=== PATIENT | female | born 1965 | race African-American/Black ===

== ENCOUNTER → 2016-09-10 | Outpatient (CLI) | payer OTHER, MEDICAID ==
[2016-09-01 13:36] VITALS: BP 121/69
== END ==
LOC: LAB 09:42
PROVIDERS: ATTEND Orthopaedic Surgery
DX: Z79.01 Long term (current) use of anticoagulants (principal)
CPT/HCPCS: 36415; 85610

== ENCOUNTER → 2016-09-12 | Outpatient (CLI) | payer OTHER, MEDICAID ==
[2016-09-01 13:36] VITALS: BP 121/69
== END ==
LOC: LAB 07:12
PROVIDERS: ATTEND Orthopaedic Surgery
DX: M25.561 Pain in right knee (principal); R79.1 Abnormal coagulation profile
CPT/HCPCS: 36415; 85610

== ENCOUNTER 2016-09-17 18:28 | Emergency (ER) | payer OTHER, MEDICAID ==
[2016-09-17 18:35] VITALS: BP 162/97; BMI 32.8
--- NOTE | 2016-09-17 18:51 | DR.GENAD ---
HPI - PCP Primary Care Physician: desirae - HPI Comment HPI Comment: on coumadin, not anticouagulated when check. dosage increase. took pain med before coming. no drainage. - Complaint/Symptoms Chief Complaint Doctors Comments: post knee surgery 2 weeks ago. increasing calf swelling and pain. no fever. slight erythema around knee. Chief Complaint:: pt states" i had a bruise on the back of my rt leg its gone and i think i got a blood clot". pt had knee replacement on [id number] - Nurses notes reviewed Nurses Notes Review: Yes - Source History Provided: Patient - Mode of Arrival Mode of Arrival: Wheelchair - Timing Onset of Chief Complaint: 09/17/16 Came on: Suddenly - Duration Duration: Constant Duration: Days - Severity Severity: Moderate PMH - PMH Past Medical History: Yes Past Medical History: Arthritis, Diabetes, Hypertension Past Surgical History: Yes Surgical History: Cholecystectomy, Hysterectomy, Joint Replacement, Ortho Surgery Past Surgical History Comment: rt knee [id number] - Family History History of Family Medical Conditions: Yes Family Medical History: Diabetes Mellitus, [place], Coronary Artery Disease, Heart Failure, Sudden Cardiac , Hypertension - Social History Does any household member use tobacco: No Alcohol Use: None Do you use any recreational Drugs:: No Lives With: Family Lives Where: Home - infectious screening In the last 2 months have you had wt loss of >10#?: NO Have you had fever, night sweats or hemotysis?: No Have you traveled outside the country in the last 6 months?: No Isolation: Standard ROS - Review of Systems Constitutional: Weakness, Fatigue. negative: Chills, Fever Eyes: No Symptoms Reported ENTM: No Symptoms Reported Respiratoy: No Symptoms Reported Cardiovascular: No Symptoms Reported Gastrointestinal/Abdominal: No Symptoms Reported Genitourinary: No Symptoms Reported Neurological: No Symptoms Reported Musculoskeletal: Right, Leg, Knee Integumentary: Change in Color, Bruises Hematologic/Lymphatic: Easy Bleeding, Easy Bruising Endocrine: No Symptoms Reported All Other Systems: Reviewed and Negative PE - Vital Signs Vitals: Temperature 99.2 F Pulse Rate 103 Respiratory Rate 18 Blood Pressure [Right Arm] 157/86 Blood Pressure [Left Arm] 161/82 Blood Pressure 162/97 O2 Sat by Pulse Oximetry 100 - General Limitations: No Limitations General Appearance: Alert - Head Head Exam: Normal Inspection - Eyes Eye exam: Normal Appearance - ENT ENT Exam: Normal External Ear Exam External Ear Exam: Normal External Inspection TM/Canal Exam: Bilateral Normal Nose Exam: Normal Nose Exam Mouth Exam: Normal Inspection Throat Exam: Normal Inspection - Neck Neck Exam: Trachea Midline - Chest Chest Inspection: Symmetric Chest Wall Rise - Respiratory Respiratory Exam: Normal Lung Sounds Bilat Respiratory Exam: Bilateral Clear to Auscultation - Cardiovascular Cardiovascular Exam: Regular Rate, Normal Rhythm, Normal Heart Sounds - Abdominal Exam Abdominal Exam: Normal Bowel Sounds, Soft. negative: Tenderness - Extremities Extremities Exam: Tenderness (rt knee and calf tender.). negative: Full ROM ( rt knee decrease rom.) - Back Back Exam: Paraspinal Tenderness - Neurologic Neurological Exam: Alert, Oriented X3 - Psychiatric Psychiatric Exam: Anxious - Skin Skin Exam: Normal Color [facility] - Additional Information Additional Information Obtained From: Family - Differential Diagnosis Differential Diagnosis: dvt, cewllulitid, right knee pain, right calf pain Course - Treatment Treatment: see orders - Education/Counseling Education/Counseling: Patient, Family, Education Educated On: Treatment, Diagnosis, Needs for Follow Up ROR - Labs Reviewed Laboratory Results Reviewed?: Yes Result Diagrams: 09/17/16 19:20 09/17/16 19:20 Laboratory: WBC 9.4 X10^3/uL (3.6-10.0) 09/17/16 19:20 RBC 3.84 X10^6/uL (3.5-5.4) 09/17/16 19:20 Hgb 11.3 g/dL (12.0-16.0) L 09/17/16 19: Hct 33.9 % (36.0-47.0) L 09/17/16 19:20 MCV 88.3 fL (80.0-100.0) 09/17/16 19:20 MCH 29.5 pg (27.0-34.0) 09/17/16 19:20 MCHC 33.4 g/dL (33.0-35.0) 09/17/16 19:20 RDW 13.3 % (11.6-16.5) 09/17/16 19:20 Plt Count 687 X10^3/uL (150.0-450.0) H 09/17/16 19:20 Plt Count Comment Increased (ADEQUATE) A 09/17/16 19:20 MPV 6.0 fL (7.4-11.0) L 09/17/16 19:20 Neut % 52.2 % (42.0-75.0) 09/17/16 19:20 Lymph % 35.5 % (21.0-51.0) 09/17/16 19:20 [place] % 8.0 % (0.0-13.0) 09/17/16 19:20 Eos % 3.8 % (0.9-2.9) H 09/17/16 19:20 Baso % 0.5 % (0.2-1.0) 09/17/16 19:20 Neut # 4.9 x10^3/uL (2.2-4.8) H 09/17/16 19:20 Lymph # 3.3 X10^3/uL (1.3-2.9) H 09/17/16 19:20 [place] # 0.7 x10^3/uL (0.3-0.8) 09/17/16 19:20 Eos # 0.4 x10^3/uL (0.0-0.2) H 09/17/16 19:20 Baso # 0.0 X10^3/uL (0.0-0.1) 09/17/16 19:20 Absolute Nucleated RBC 0.0 /100WBC 09/17/16 19:20 Plt Morphology Comment Normal (NORMAL) 09/17/16 19:20 RBC Morphology Abnormal (NORMAL) A 09/17/16 19:20 Hypochromasia Slight A 09/17/16 19:20 Poikilocytosis Slight A 09/17/16 19:20 D-Dimer 2860 ng/mL (0-400) H* 09/17/16 19:20 Sodium 142 mmol/L (136-145) 09/17/16 19:20 Corrected Sodium 143 mmol/L (136-145) 09/17/16 19:20 Potassium 3.3 mmol/L (3.5-5.1) L 09/17/16 19:20 Chloride 103 mmol/L (98-107) 09/17/16 19:20 Carbon Dioxide 30.0 mmol/L (21-32) 09/17/16 19:20 BUN 20 mg/dL (7-18) H 09/17/16 19:20 Creatinine 1.16 mg/dL (0.55-1.02) H 09/17/16 19:20 Est GFR (MDRD) Af Amer > 60 (>60) 09/17/16 19:20 Est GFR (MDRD) Non-Af 52 (>60) L 09/17/16 19:20 Glucose 160 mg/dL (65-99) H 09/17/16 19:20 Calcium 9.0 mg/dL (8.5-10.1) 09/17/16 19:20 Corrected Calcium TNP 09/17/16 19:20 Total Bilirubin 0.50 mg/dL (0.2-1.0) 09/17/16 19:20 AST 45 Units/L (15-37) H 09/17/16 19:20 ALT 51 Units/L (12-78) 09/17/16 19:20 Alkaline Phosphatase 61 Units/L (46-116) 09/17/16 19:20 Total Protein 7.9 g/dL (6.4-8.2) 09/17/16 19:20 Albumin 3.4 g/dL (3.4-5.0) 09/17/16 19:20 Globulin 4.5 g/dL (2.5-4.5) 09/17/16 19:20 Albumin/Globulin Ratio 0.8 Ratio (1.1-2.1) L 09/17/16 19:20 - XRAY XRAY Interpreted by: Radiologist XRAY Findings: repoert discuss with patient. - Diagnosis Discharge Problem: Right calf pain, Hypokalemia Right knee pain Qualifiers: Chronicity: acute Qualified Code(s): M25.561 - Pain in right knee - Discharge Plan Disposition: 01 HOME, SELF-CARE Condition: Stable - Follow ups/Referrals Follow ups/Referrals: NFD,None [Primary Care Provider] - 3 days - Instructions Instructions: Knee Pain, [id number], Hypokalemia Additional Instructions: RETURN TO ED IF WORSE.
[2016-09-17 19:31] LABS: BASOPHILS % (AUTO) 0.5 % (0.2-1.0); EOSINOPHILS # (AUTO) 0.4 x10^3/uL (0.0-0.2); EOSINOPHILS % (AUTO) 3.8 % (0.9-2.9); HEMATOCRIT 33.9 % (36.0-47.0); HEMOGLOBIN 11.3 g/dL (12.0-16.0); LYMPHOCYTES # (AUTO) 3.3 X10^3/uL (1.3-2.9); LYMPHOCYTES % (AUTO) 35.5 % (21.0-51.0); MEAN CORPUSCULAR HEMOGLOBIN 29.5 pg (27.0-34.0); MEAN CORPUSCULAR HGB CONC 33.4 g/dL (33.0-35.0); MEAN CORPUSCULAR VOLUME 88.3 fL (80.0-100.0); MONOCYTES # (AUTO) 0.7 x10^3/uL (0.3-0.8); NEUTROPHILS # (AUTO) 4.9 x10^3/uL (2.2-4.8); NEUTROPHILS % (AUTO) 52.2 % (42.0-75.0); PLATELET COUNT 687 X10^3/uL (150.0-450.0); RED BLOOD COUNT 3.84 X10^6/uL (3.5-5.4); RED CELL DISTRIBUTION WIDTH 13.3 % (11.6-16.5); WHITE BLOOD COUNT 9.4 X10^3/uL (3.6-10.0)
[2016-09-17 19:41] LABS: PLATELET MORPHOLOGY COMMENT NORMAL (NORMAL)
[2016-09-17 19:43] LABS: HYPOCHROMASIA SLIGHT; POIKILOCYTOSIS SLIGHT
[2016-09-17 19:47] LABS: ALANINE AMINOTRANSFERASE 51 Units/L (12-78); ALBUMIN 3.4 g/dL (3.4-5.0); ALKALINE PHOSPHATASE 61 Units/L (46-116); ASPARTATE AMINO TRANSFERASE 45 Units/L (15-37); BLOOD UREA NITROGEN 20 mg/dL (7-18); CHLORIDE 103 mmol/L (98-107); COR NA(FOR HYPERGLY) 143 mmol/L (136-145); CREATININE 1.16 mg/dL (0.55-1.02); GLUCOSE 160 mg/dL (65-99); SODIUM 142 mmol/L (136-145); TOTAL PROTEIN 7.9 g/dL (6.4-8.2); eGFR BLACK RACES > 60 (>60); eGFR NON BLACK RACES 52 (>60)
--- NOTE | 2016-09-17 19:54 | VAS ---
Ultrasound right lower extremity venous Doppler Indication: Knee surgery. Pain and swelling with erythema. Technique: Dynamic grayscale, color spectral Doppler imaging through the right lower extremity venou s system with compression techniques and spectral analysis. Findings: The right common femoral vein, superficial femoral vein throughout its length and poplitea l vein are patent hang compressible with normal respiratory phasicity. Impression: No right lower extremity deep vein thrombosis. Reported By:
[2016-09-17] MEDS ORDERED: POTASSIUM CHLORIDE LIQ 20 MEQ UDC PO ONE (20:05)
[2016-09-17] MEDS ORDERED: POTASSIUM CHLORIDE LIQ 20 MEQ UDC ONE (20:12)
== END 2016-09-17 20:29 | disposition home or self-care (01) ==
LOC: ER 18:28
DX: M79.604 Pain in right leg (principal); M25.561 Pain in right knee; E87.6 Hypokalemia; Z79.01 Long term (current) use of anticoagulants; R79.1 Abnormal coagulation profile
CPT/HCPCS: 36415; 80053; 85025; 85378; 85610; 93971; 99283

== ENCOUNTER → 2016-09-17 | Outpatient (CLI) | payer OTHER, MEDICAID ==
[2016-09-01 13:36] VITALS: BP 121/69
== END ==
LOC: LAB 08:49
PROVIDERS: ATTEND Orthopaedic Surgery
DX: M79.604 Pain in right leg (principal); M25.561 Pain in right knee; E87.6 Hypokalemia; Z79.01 Long term (current) use of anticoagulants; R79.1 Abnormal coagulation profile
CPT/HCPCS: 36415; 85610

== ENCOUNTER → 2016-09-19 | Outpatient (CLI) | payer OTHER, MEDICAID ==
[2016-09-17 18:35] VITALS: BP 162/97
== END ==
LOC: LAB 07:06
PROVIDERS: ATTEND Orthopaedic Surgery
DX: M25.561 Pain in right knee (principal); R79.1 Abnormal coagulation profile
CPT/HCPCS: 36415; 85610

== ENCOUNTER → 2016-09-24 | Outpatient (CLI) | payer OTHER, MEDICAID ==
[2016-09-17 18:35] VITALS: BP 162/97
== END ==
LOC: LAB 07:20
PROVIDERS: ATTEND Orthopaedic Surgery
DX: M25.561 Pain in right knee (principal); R79.1 Abnormal coagulation profile
CPT/HCPCS: 36415; 85610

== ENCOUNTER → 2016-09-26 | Outpatient (CLI) | payer OTHER, MEDICAID ==
[2016-09-17 18:35] VITALS: BP 162/97
== END ==
LOC: LAB 07:08
PROVIDERS: ATTEND Orthopaedic Surgery
DX: Z79.01 Long term (current) use of anticoagulants (principal); M25.561 Pain in right knee
CPT/HCPCS: 36415; 85610

== ENCOUNTER → 2016-10-01 | Outpatient (CLI) | payer OTHER, MEDICAID ==
[2016-09-17 18:35] VITALS: BP 162/97
== END ==
LOC: LAB 06:19
PROVIDERS: ATTEND Orthopaedic Surgery
DX: Z79.01 Long term (current) use of anticoagulants (principal); M25.561 Pain in right knee
CPT/HCPCS: 36415; 85610

== ENCOUNTER 2016-10-29 16:55 | Emergency (ER) | payer OTHER, MEDICAID ==
[2016-10-29 17:03] VITALS: BP 138/89; BMI 31.3
--- NOTE | 2016-10-29 17:35 | DR.GENAD ---
HPI - PCP Primary Care Physician: desirae - Complaint/Symptoms Chief Complaint Doctors Comments: chest pain x 3 days off and on but depression with crying episodes since last year when sister . Chief Complaint:: patient stated her chest has been hurting off and on for 3 days, left arm pain for 2 days and her head started hurting today - Nurses notes reviewed Nurses Notes Review: Yes - Source History Provided: Patient - Mode of Arrival Mode of Arrival: Ambulatory - Timing Onset of Chief Complaint: 10/27/16 Came on: Gradually - Duration Duration: Intermittent How lon Duration: Days - Location Location: chest - Severity Severity: Mild - Modifying Factors Worsens:: nothing - Associated Signs and Symptoms Associated Signs and Symptoms: headache, depression PMH - PMH Past Medical History: Yes Past Medical History: Arthritis, Diabetes, Hypertension Past Surgical History: Yes Surgical History: Cholecystectomy, Hysterectomy, Joint Replacement, Ortho Surgery - Family History History of Family Medical Conditions: Yes Family Medical History: Diabetes Mellitus, [place], Coronary Artery Disease, Heart Failure, Sudden Cardiac , Hypertension - Social History Does patient currently use any type of tobacco product: No Have you used tobacco products in the last 12 months: No Type of Tobacco Use: None Does any household member use tobacco: No Alcohol Use: None Do you use any recreational Drugs:: No Lives With: Family Lives Where: Home - infectious screening In the last 2 months have you had wt loss of >10#?: NO Have you had fever, night sweats or hemotysis?: No Have you traveled outside the country in the last 6 months?: No Isolation: Standard ROS - Review of Systems Constitutional: No Symptoms Reported Eyes: No Symptoms Reported ENTM: No Symptoms Reported Respiratoy: No Symptoms Reported Cardiovascular: Chest Pain Gastrointestinal/Abdominal: No Symptoms Reported Genitourinary: No Symptoms Reported Neurological: Headache Musculoskeletal: No Symptoms Reported Integumentary: No Symptoms Reported Hematologic/Lymphatic: No Symptoms Reported Endocrine: No Symptoms Reported Psychiatric: Depression PE - Vital Signs Vitals: Temperature 96.3 F Pulse Rate 86 Respiratory Rate 18 Blood Pressure [Right Arm] 157/86 Blood Pressure [Left Arm] 161/82 Blood Pressure 138/89 O2 Sat by Pulse Oximetry 100 - General Limitations: No Limitations General Appearance: Alert, In No Apparent Distress - Head Head Exam: Normal Inspection - Eyes Eye exam: Normal Appearance, EOMI, Nystagmus. negative: Scleral Icterus, Conjunctival Injection - ENT ENT Exam: Normal Exam, Normal Oropharynx External Ear Exam: Normal External Inspection Nose Exam: Normal Nose Exam Mouth Exam: Normal Inspection - Neck Neck Exam: Normal Inspection, Full ROM, Trachea Midline - Chest Chest Inspection: Normal Inspection - Respiratory Respiratory Exam: Normal Lung Sounds Bilat. negative: Accessory Muscle Use, Respiratory Distress Respiratory Exam: Bilateral Clear to Auscultation - Cardiovascular Cardiovascular Exam: Regular Rate - Abdominal Exam Abdominal Exam: Normal Inspection, Normal Bowel Sounds, Soft. negative: Distention, Tenderness, Guarding - Extremities Extremities Exam: Normal Inspection, Full ROM, Tenderness - Back Back Exam: Normal Inspection, Full ROM - Neurologic Neurological Exam: Alert, Oriented X3, CN II-XII Intact - Psychiatric Psychiatric Exam: Normal Affect - Skin Skin Exam: Intact, Normal Color ROR - Labs Reviewed Result Diagrams: 10/29/16 17:45 10/29/16 17:45 Laboratory: WBC 7.8 X10^3/uL (3.6-10.0) 10/29/16 17:45 RBC 4.37 X10^6/uL (3.5-5.4) 10/29/16 17:45 Hgb 13.1 g/dL (12.0-16.0) 10/29/16 17:45 Hct 38.9 % (36.0-47.0) 10/29/16 17:45 MCV 89.1 fL (80.0-100.0) 10/29/16 17:45 MCH 29.9 pg (27.0-34.0) 10/29/16 17:45 MCHC 33.6 g/dL (33.0-35.0) 10/29/16 17:45 RDW 14.0 % (11.6-16.5) 10/29/16 17:45 Plt Count 272 X10^3/uL (150.0-450.0) 10/29/16 17:45 MPV 6.8 fL (7.4-11.0) L 10/29/16 17:45 Neut % 49.8 % (42.0-75.0) 10/29/16 17:45 Lymph % 39.3 % (21.0-51.0) 10/29/16 17:45 [place] % 9.7 % (0.0-13.0) 10/29/16 17:45 Eos % 0.8 % (0.9-2.9) L 10/29/16 17:45 Baso % 0.4 % (0.2-1.0) 10/29/16 17:45 Neut # 3.9 x10^3/uL (2.2-4.8) 10/29/16 17:45 Lymph # 3.1 X10^3/uL (1.3-2.9) H 10/29/16 17:45 [place] # 0.8 x10^3/uL (0.3-0.8) 10/29/16 17:45 Eos # 0.1 x10^3/uL (0.0-0.2) 10/29/16 17:45 Baso # 0.0 X10^3/uL (0.0-0.1) 10/29/16 17:45 Absolute Nucleated RBC 0.0 /100WBC 10/29/16 17:45 INR Target Range - 10/29/16 17:45 INR 0.94 (0.8-1.3) 10/29/16 17:45 PTT 24.9 SECONDS (22.9-36.5) 10/29/16 17:45 PTT Comment - 10/29/16 17:45 Sodium 144 mmol/L (136-145) 10/29/16 17:45 Corrected Sodium 145 mmol/L (136-145) 10/29/16 17:45 Potassium 3.5 mmol/L (3.5-5.1) 10/29/16 17:45 Chloride 104 mmol/L (98-107) 10/29/16 17:45 Carbon Dioxide 30.1 mmol/L (21-32) 10/29/16 17:45 BUN 23 mg/dL (7-18) H 10/29/16 17:45 Creatinine 1.61 mg/dL (0.55-1.02) H 10/29/16 17:45 Est GFR (MDRD) Af Amer 43 (>60) L 10/29/16 17:45 Est GFR (MDRD) Non-Af 36 (>60) L 10/29/16 17:45 Glucose 154 mg/dL (65-99) H 10/29/16 17:45 Calcium 9.6 mg/dL (8.5-10.1) 10/29/16 17:45 Corrected Calcium TNP 10/29/16 17:45 Magnesium 1.7 mg/dL (1.7-2.9) 10/29/16 17:45 Total Bilirubin 0.50 mg/dL (0.2-1.0) 10/29/16 17:45 AST 29 Units/L (15-37) 10/29/16 17:45 ALT 42 Units/L (12-78) 10/29/16 17:45 Alkaline Phosphatase 51 Units/L (46-116) 10/29/16 17:45 Creatine Kinase 77 Units/L (26-192) 10/29/16 17:45 CK-MB (CK-2) < 1.0 ng/mL (0-4.0) 10/29/16 17:45 CK/CKMB % Calc 1.3 % (<4) 10/29/16 17:45 Troponin I < 0.02 ng/mL (0-1.5) 10/29/16 17:45 Total Protein 7.7 g/dL (6.4-8.2) 10/29/16 17:45 Albumin 3.8 g/dL (3.4-5.0) 10/29/16 17:45 Globulin 3.9 g/dL (2.5-4.5) 10/29/16 17:45 Albumin/Globulin Ratio 1.0 Ratio (1.1-2.1) L 10/29/16 17:45 - XRAY XRAY Interpreted by: Radiologist XRAY Findings: chest: normal - Diagnosis Discharge Problem: Anxiety and depression Chest pain Qualifiers: Chest pain type: other chest pain Qualified Code(s): R07.89 - Other chest pain ; R07.8 - Other chest pain - Discharge Plan Condition: Stable - Follow ups/Referrals Follow ups/Referrals: Bucky Mireles [Primary Care Provider] - 3 days - Instructions
[2016-10-29 18:05] LABS: BASOPHILS % (AUTO) 0.4 % (0.2-1.0); EOSINOPHILS # (AUTO) 0.1 x10^3/uL (0.0-0.2); EOSINOPHILS % (AUTO) 0.8 % (0.9-2.9); HEMATOCRIT 38.9 % (36.0-47.0); HEMOGLOBIN 13.1 g/dL (12.0-16.0); LYMPHOCYTES # (AUTO) 3.1 X10^3/uL (1.3-2.9); LYMPHOCYTES % (AUTO) 39.3 % (21.0-51.0); MEAN CORPUSCULAR HEMOGLOBIN 29.9 pg (27.0-34.0); MEAN CORPUSCULAR HGB CONC 33.6 g/dL (33.0-35.0); MEAN CORPUSCULAR VOLUME 89.1 fL (80.0-100.0); MEAN PLATELET VOLUME 6.8 fL (7.4-11.0); MONOCYTES # (AUTO) 0.8 x10^3/uL (0.3-0.8); MONOCYTES % (AUTO) 9.7 % (0.0-13.0); NEUTROPHILS # (AUTO) 3.9 x10^3/uL (2.2-4.8); NEUTROPHILS % (AUTO) 49.8 % (42.0-75.0); PLATELET COUNT 272 X10^3/uL (150.0-450.0); RED BLOOD COUNT 4.37 X10^6/uL (3.5-5.4); WHITE BLOOD COUNT 7.8 X10^3/uL (3.6-10.0)
--- NOTE | 2016-10-29 18:08 | RAD ---
HISTORY: Chest pain. Study: Chest one view Comparison: October 17, 2015. Findings: The trachea is midline. The cardiac silhouette is unremarkable. The lungs are clear without focal infiltrate or effusion. The bony thorax is unremarkable. IMPRESSION: 1. No acute cardiopulmonary disease. Reported By:
[2016-10-29 18:16] LABS: BLOOD UREA NITROGEN 23 mg/dL (7-18); CALCIUM 9.6 mg/dL (8.5-10.1); CARBON DIOXIDE 30.1 mmol/L (21-32); CHLORIDE 104 mmol/L (98-107); COR NA(FOR HYPERGLY) 145 mmol/L (136-145); CREATININE 1.61 mg/dL (0.55-1.02); GLUCOSE 154 mg/dL (65-99); SODIUM 144 mmol/L (136-145); TROPONIN I < 0.02 ng/mL (0-1.5); eGFR BLACK RACES 43 (>60); eGFR NON BLACK RACES 36 (>60)
[2016-10-29 18:20] LABS: ALANINE AMINOTRANSFERASE 42 Units/L (12-78); ALBUMIN 3.8 g/dL (3.4-5.0); ALKALINE PHOSPHATASE 51 Units/L (46-116); ASPARTATE AMINO TRANSFERASE 29 Units/L (15-37); CKMB % 1.3 % (<4); CREATINE KINASE 77 Units/L (26-192); CREATINE KINASE MB < 1.0 ng/mL (0-4.0); MAGNESIUM 1.7 mg/dL (1.7-2.9); TOTAL PROTEIN 7.7 g/dL (6.4-8.2)
[2016-10-29] MEDS ORDERED: ATIVAN TAB 1 MG PO ONE (19:03)
[2016-10-29] MEDS ORDERED: ATIVAN TAB 1 MG ONE (19:33)
== END 2016-10-29 21:05 | disposition home or self-care (01) ==
LOC: ER 17:09
DX: F41.8 Other specified anxiety disorders (principal); F32.9 Major depressive disorder, single episode, unspecified; R07.89 Other chest pain
CPT/HCPCS: 36415; 71010; 80053; 82550; 82553; 83735; 84484; 85025; 85610; 85730; 93005; 93010; 99283

== ENCOUNTER 2016-12-05 08:19 | Day surgery (SDC) | payer OTHER, MEDICAID ==
[2016-12-05] MEDS ORDERED: D5 LR 1000 ML 1,000 ML IV ONE (08:44)
[2016-12-05] MEDS ORDERED: DIPRIVAN VIAL 20 ML ONE (09:49)
[2016-12-05 13:56] VITALS: BP 106/62
== END 2016-12-05 10:25 | disposition home or self-care (01) ==
LOC: SURG1 08:19
PROVIDERS: ATTEND Internal Medicine Gastroenterology
PROC: 0DJ08ZZ Inspection of Upper Intestinal Tract, Via Natural or Artificial Opening Endoscopic (ICD-10-PCS; principal; 2016-12-05 14:00)
PROC: 0DB88ZX Excision of Small Intestine, Via Natural or Artificial Opening Endoscopic, Diagnostic (ICD-10-PCS; principal; 2016-12-05 14:00)
PROC: 0DB68ZX Excision of Stomach, Via Natural or Artificial Opening Endoscopic, Diagnostic (ICD-10-PCS; principal; 2016-12-05 14:00)
PROC: 0D757ZZ Dilation of Esophagus, Via Natural or Artificial Opening (ICD-10-PCS; principal; 2016-12-05 14:00)
DX: R13.19 Other dysphagia (principal); R10.13 Epigastric pain; K21.9 Gastro-esophageal reflux disease without esophagitis; Z86.19 Personal history of other infectious and parasitic diseases; K20.8 Other esophagitis; K22.2 Esophageal obstruction; K22.4 Dyskinesia of esophagus; K29.60 Other gastritis without bleeding
CPT/HCPCS: A4217; J3490; J7120

== ENCOUNTER → 2017-02-18 | Outpatient (CLI) | payer OTHER, MEDICAID ==
--- NOTE | 2017-02-19 09:30 | MRI ---
STUDY: MRI OF THE BRAIN WITHOUT AND WITH GADOLINIUM History: Headaches. Memory impairment. Amnesia. Comparison: Head CT from September 01, 2016. Technique: Multiplanar multi-sequence MRI of the brain was obtained utilizing standard departmental protocol. Sagittal and axial T1, axial T2, FLAIR, diffusion (DWI/ADC) images through the brain were performed. 10 cc of gadolinium was administered without reported complication following acquisition of informed written consent. Post gadolinium axial and coronal whole brain images were performed. Findings: Pre gadolinium brain: The sulci, cisterns, and ventricles are age appropriate. There is no evidence of acute territorial infarction, hemorrhage, mass, mass effect or midline shift. There are no abnorm al intra-axial or extra-axial fluid collections. The major intracranial vascular flow voids are inta ct. Post gadolinium brain: Following the uneventful administration of intravenous gadolinium, there is n o evidence of abnormal brain parenchymal or leptomeningeal enhancement. IMPRESSION: 1. No evidence of acute intracranial abnormality. Reported By:
== END ==
LOC: RAD 14:51
PROVIDERS: ATTEND Internal Medicine
DX: R41.3 Other amnesia (principal)
CPT/HCPCS: 70552

== ENCOUNTER → 2017-03-21 | Outpatient (CLI) | payer OTHER, MEDICAID ==
[2017-03-21 11:15] LABS: BASOPHILS % (AUTO) 0.5 % (0.2-1.0); EOSINOPHILS # (AUTO) 0.2 x10^3/uL (0.0-0.2); EOSINOPHILS % (AUTO) 2.1 % (0.9-2.9); HEMATOCRIT 36.9 % (36.0-47.0); HEMOGLOBIN 12.6 g/dL (12.0-16.0); LYMPHOCYTES # (AUTO) 4.2 X10^3/uL (1.3-2.9); LYMPHOCYTES % (AUTO) 50.4 % (21.0-51.0); MEAN CORPUSCULAR HEMOGLOBIN 30.4 pg (27.0-34.0); MEAN CORPUSCULAR HGB CONC 34.1 g/dL (33.0-35.0); MEAN CORPUSCULAR VOLUME 89.1 fL (80.0-100.0); MEAN PLATELET VOLUME 6.3 fL (7.4-11.0); MONOCYTES # (AUTO) 0.6 x10^3/uL (0.3-0.8); MONOCYTES % (AUTO) 7.5 % (0.0-13.0); NEUTROPHILS # (AUTO) 3.3 x10^3/uL (2.2-4.8); NEUTROPHILS % (AUTO) 39.5 % (42.0-75.0); PLATELET COUNT 351 X10^3/uL (150.0-450.0); RED BLOOD COUNT 4.14 X10^6/uL (3.5-5.4); RED CELL DISTRIBUTION WIDTH 13.2 % (11.6-16.5); WHITE BLOOD COUNT 8.3 X10^3/uL (3.6-10.0)
[2017-03-21 11:29] LABS: ALBUMIN 3.2 g/dL (3.4-5.0); BILIRUBIN,DIRECT 0.07 mg/dL (0-0.2); TOTAL PROTEIN 7.3 g/dL (6.4-8.2)
[2017-03-21 11:37] LABS: SERUM PREGNANCY TEST, QUAL NEGATIVE <10 mIU/mL
== END | disposition home or self-care (01) ==
LOC: LAB 10:15
PROVIDERS: ATTEND Internal Medicine Gastroenterology
DX: B18.2 Chronic viral hepatitis C (principal)
CPT/HCPCS: 36415; 80076; 84703; 85025; 87522

== ENCOUNTER → 2017-03-27 | Outpatient (CLI) | payer OTHER, MEDICAID ==
--- NOTE | 2017-03-28 11:55 | US ---
HISTORY: Right knee pain, evaluate for Cerrato's cyst, status post knee arthroplasty 3 months ago Study: Nonvascular extremity ultrasound Comparison: None Findings: Targeted ultrasound of the right knee was performed. No evidence of Cerrato cyst or other fluid collect ions in the popliteal region. No solid mass identified. IMPRESSION: 1. No evidence of Cerrato's cyst or other fluid collection. Reported By:
== END ==
LOC: RAD 10:06
PROVIDERS: ATTEND Physical Medicine & Rehabilitation
DX: M54.18 Radiculopathy, sacral and sacrococcygeal region (principal); M25.561 Pain in right knee; M54.5 Low back pain; R53.1 Weakness; M51.36 Other intervertebral disc degeneration, lumbar region; M47.896 Other spondylosis, lumbar region; R26.89 Other abnormalities of gait and mobility; M71.21 Synovial cyst of popliteal space [Baker], right knee
CPT/HCPCS: 76881

== ENCOUNTER → 2017-04-21 | Outpatient (CLI) | payer OTHER, MEDICAID ==
[2017-04-21 12:23] LABS: ALBUMIN 3.5 g/dL (3.4-5.0); BASOPHILS # (AUTO) 0.1 X10^3/uL (0.0-0.1); BASOPHILS % (AUTO) 0.8 % (0.2-1.0); BILIRUBIN,DIRECT 0.16 mg/dL (0-0.2); EOSINOPHILS # (AUTO) 0.2 x10^3/uL (0.0-0.2); EOSINOPHILS % (AUTO) 1.9 % (0.9-2.9); HEMATOCRIT 37.7 % (36.0-47.0); HEMOGLOBIN 13.1 g/dL (12.0-16.0); LYMPHOCYTES # (AUTO) 3.1 X10^3/uL (1.3-2.9); MEAN CORPUSCULAR HEMOGLOBIN 30.5 pg (27.0-34.0); MEAN CORPUSCULAR HGB CONC 34.6 g/dL (33.0-35.0); MEAN CORPUSCULAR VOLUME 88.2 fL (80.0-100.0); MEAN PLATELET VOLUME 7.1 fL (7.4-11.0); MONOCYTES # (AUTO) 0.7 x10^3/uL (0.3-0.8); MONOCYTES % (AUTO) 8.3 % (0.0-13.0); NEUTROPHILS # (AUTO) 4.2 x10^3/uL (2.2-4.8); PLATELET COUNT 279 X10^3/uL (150.0-450.0); RED BLOOD COUNT 4.28 X10^6/uL (3.5-5.4); RED CELL DISTRIBUTION WIDTH 13.3 % (11.6-16.5); TOTAL PROTEIN 7.8 g/dL (6.4-8.2); WHITE BLOOD COUNT 8.2 X10^3/uL (3.6-10.0)
[2017-04-21 12:28] LABS: SERUM PREGNANCY TEST, QUAL NEGATIVE <10 mIU/mL
== END | disposition home or self-care (01) ==
LOC: LAB 11:43
PROVIDERS: ATTEND Internal Medicine Gastroenterology
DX: B18.2 Chronic viral hepatitis C (principal)
CPT/HCPCS: 36415; 80076; 84703; 85025

== ENCOUNTER → 2017-05-27 | Outpatient (CLI) | payer OTHER, MEDICAID ==
[2017-05-27 11:36] LABS: BASOPHILS % (AUTO) 0.7 % (0.2-1.0); EOSINOPHILS # (AUTO) 0.2 x10^3/uL (0.0-0.2); EOSINOPHILS % (AUTO) 2.6 % (0.9-2.9); HEMATOCRIT 37.2 % (36.0-47.0); HEMOGLOBIN 12.5 g/dL (12.0-16.0); MEAN CORPUSCULAR HEMOGLOBIN 30.3 pg (27.0-34.0); MEAN CORPUSCULAR HGB CONC 33.7 g/dL (33.0-35.0); MONOCYTES # (AUTO) 0.7 x10^3/uL (0.3-0.8); MONOCYTES % (AUTO) 9.8 % (0.0-13.0); NEUTROPHILS # (AUTO) 3.3 x10^3/uL (2.2-4.8); NEUTROPHILS % (AUTO) 45.9 % (42.0-75.0); PLATELET COUNT 294 X10^3/uL (150.0-450.0); RED BLOOD COUNT 4.13 X10^6/uL (3.5-5.4); RED CELL DISTRIBUTION WIDTH 13.9 % (11.6-16.5); WHITE BLOOD COUNT 7.2 X10^3/uL (3.6-10.0)
[2017-05-27 12:09] LABS: ALBUMIN 3.4 g/dL (3.4-5.0); BILIRUBIN,DIRECT 0.09 mg/dL (0-0.2); SERUM PREGNANCY TEST, QUAL NEGATIVE <10 mIU/mL; TOTAL PROTEIN 7.2 g/dL (6.4-8.2)
== END ==
LOC: LAB 11:09
PROVIDERS: ATTEND Internal Medicine Gastroenterology
DX: B18.2 Chronic viral hepatitis C (principal)
CPT/HCPCS: 36415; 80076; 84703; 85025; 87522

== ENCOUNTER → 2017-06-12 | Outpatient (CLI) | payer OTHER, MEDICAID ==
[2017-06-12 11:23] LABS: BASOPHILS # (AUTO) 0.1 X10^3/uL (0.0-0.1); BASOPHILS % (AUTO) 0.9 % (0.2-1.0); EOSINOPHILS # (AUTO) 0.1 x10^3/uL (0.0-0.2); EOSINOPHILS % (AUTO) 1.2 % (0.9-2.9); HEMATOCRIT 40.7 % (36.0-47.0); LYMPHOCYTES # (AUTO) 3.4 X10^3/uL (1.3-2.9); LYMPHOCYTES % (AUTO) 35.2 % (21.0-51.0); MEAN CORPUSCULAR HEMOGLOBIN 30.6 pg (27.0-34.0); MEAN CORPUSCULAR HGB CONC 34.3 g/dL (33.0-35.0); MEAN CORPUSCULAR VOLUME 89.3 fL (80.0-100.0); MEAN PLATELET VOLUME 7.1 fL (7.4-11.0); MONOCYTES # (AUTO) 0.8 x10^3/uL (0.3-0.8); MONOCYTES % (AUTO) 7.9 % (0.0-13.0); NEUTROPHILS # (AUTO) 5.2 x10^3/uL (2.2-4.8); NEUTROPHILS % (AUTO) 54.8 % (42.0-75.0); PLATELET COUNT 288 X10^3/uL (150.0-450.0); RED BLOOD COUNT 4.56 X10^6/uL (3.5-5.4); RED CELL DISTRIBUTION WIDTH 13.7 % (11.6-16.5); WHITE BLOOD COUNT 9.5 X10^3/uL (3.6-10.0)
[2017-06-12 11:31] LABS: ALBUMIN 4.2 g/dL (3.4-5.0); BILIRUBIN,DIRECT 0.18 mg/dL (0-0.2); TOTAL PROTEIN 8.3 g/dL (6.4-8.2)
[2017-06-16 06:46] LABS: HCV VIRAL LOG <1.2 log IU
== END ==
LOC: LAB 10:58
PROVIDERS: ATTEND Internal Medicine Gastroenterology
DX: B18.2 Chronic viral hepatitis C (principal)
CPT/HCPCS: 36415; 80076; 85025; 87522

== ENCOUNTER 2017-06-16 22:28 | Emergency (ER) | payer OTHER, MEDICAID ==
[2017-06-16 22:39] VITALS: BP 156/73; BMI 33.2
--- NOTE | 2017-06-16 22:58 | DR.GENAD ---
HPI - PCP Primary Care Physician: JORGE - Complaint/Symptoms Chief Complaint Doctors Comments: Patient reports that on two days she was getting objects from trunk of car the the lid came down on her forehead. She admits to headache every since. She denies vomiting Chief Complaint:: HEADACHE Self Treatment fo Chief Complaint: RX PAIN MEDICATIONS PERCOCET AND TRAMADOL - Source History Provided: Patient - Mode of Arrival Mode of Arrival: Ambulatory - Timing Onset of Chief Complaint: 06/14/17 PMH - PMH Past Medical History: Yes Past Medical History: Arthritis, Diabetes, Hypertension Past Surgical History: Yes Surgical History: Hysterectomy - Family History History of Family Medical Conditions: Yes Family Medical History: Diabetes Mellitus, [place], Coronary Artery Disease, Heart Failure, Sudden Cardiac , Hypertension - Social History Does patient currently use any type of tobacco product: No Have you used tobacco products in the last 12 months: No Type of Tobacco Use: None Does any household member use tobacco: No Alcohol Use: None Do you use any recreational Drugs:: No Lives With: Family Lives Where: Home - infectious screening In the last 2 months have you had wt loss of >10#?: NO Have you had fever, night sweats or hemotysis?: No Have you traveled outside the country in the last 6 months?: No Isolation: Standard ROS - Review of Systems Eyes: No Symptoms Reported ENTM: No Symptoms Reported Respiratoy: No Symptoms Reported Cardiovascular: No Symptoms Reported Gastrointestinal/Abdominal: No Symptoms Reported Genitourinary: No Symptoms Reported Neurological: Headache Musculoskeletal: No Symptoms Reported Integumentary: No Symptoms Reported Hematologic/Lymphatic: No Symptoms Reported Endocrine: No Symptoms Reported Psychiatric: No Symptoms Reported All Other Systems: Reviewed and Negative PE - Vital Signs Vitals: Temperature 97.7 F Pulse Rate 68 Respiratory Rate 17 Blood Pressure [Right Arm] 157/86 Blood Pressure [Left Arm] 161/82 Blood Pressure 156/73 O2 Sat by Pulse Oximetry 98 - General General Appearance: Alert, In No Apparent Distress - Head Head Exam: Normal Inspection, Atraumatic - Eyes Eye exam: Normal Appearance, PERRL, EOMI. negative: Conjunctival Injection, Nystagmus, Periorbital Swelling, Periorbital Tenderness - ENT ENT Exam: Normal Exam External Ear Exam: Normal External Inspection. negative: Auricular Hematoma, Mastoid Tenderness, Pain with Movement TM/Canal Exam: Bilateral Normal Nose Exam: Normal Nose Exam Mouth Exam: Normal Inspection Throat Exam: Normal Inspection - Neck Neck Exam: Normal Inspection, Full ROM. negative: Tenderness - Chest Chest Inspection: Normal Inspection, Symmetric Chest Wall Rise - Respiratory Respiratory Exam: Normal Lung Sounds Bilat Respiratory Exam: Bilateral Clear to Auscultation - Cardiovascular Cardiovascular Exam: Regular Rate - Abdominal Exam Abdominal Exam: Normal Inspection, Normal Bowel Sounds Abdominal Tenderness: negative: RUQ, RLQ, LUQ, LLQ, Epigastrium, Suprapubic, Diffuse, Mild, Moderate, Severe, Other - Extremities Extremities Exam: Normal Inspection, Full ROM - Back Back Exam: Normal Inspection, Full ROM - Neurologic Neurological Exam: Alert, Oriented X3, CN II-XII Intact - Psychiatric Psychiatric Exam: Normal Affect - Skin Skin Exam: Warm, Dry, Intact Course - Education/Counseling Educated On: Treatment, Diagnosis, Prognosis, Needs for Follow Up ROR - XRAY XRAY Interpreted by: Radiologist (CT Facial Bones: The visualized paranasal sinuses appear unremarkable without significant mucosal thickening or air fluid levels. The mandible as well as the surrounding bony structures appear unremarkable. k The visualized portions of the orbits as well as the glove within the right and left orbit are unremarkable in their CT appearance. hardware is noted within the maxilla. There is mild bilateral mandibular peridontal disease. Imprssion: No acute fracture or soft tissue swelling within the face.) - Diagnosis Discharge Problem: Forehead contusion Qualifiers: Encounter type: initial encounter Qualified Code(s): S00.83XA - Contusion of other part of head, initial encounter - Discharge Plan Condition: Stable - Follow ups/Referrals Follow ups/Referrals: Bucky Mireles [Primary Care Provider] - 3 days - Instructions
--- NOTE | 2017-06-16 23:50 | CT ---
CT facial bones without contrast Indication: Forehead trauma 3 days prior with headache Comparison: None available Technique: Multiple axial images of the facial structures were obtained from the mandible to superior portions of the orbits. Findings: The visualized paranasal sinuses appear unremarkable without significant mucosal thickening or air-fl uid levels. The mandible as well as the surrounding bony structures appear unremarkable. The visual ized portions of the orbits as well as the globe within the right and left orbit are unremarkable in their CT appearance. Hardware is noted within the maxilla. There is mild bilateral mandibular periodontal disease. IMPRESSION: No acute fracture or soft tissue swelling within the face. Reported By:
== END 2017-06-17 00:06 | disposition home or self-care (01) ==
LOC: ER 22:39
DX: S00.83XA Contusion of other part of head, initial encounter (principal); X58.XXXA Exposure to other specified factors, initial encounter; Y92.9 Unspecified place or not applicable
CPT/HCPCS: 70486; 99282

== ENCOUNTER 2017-06-23 23:22 | Emergency (ER) | payer OTHER, MEDICAID ==
[2017-06-23 23:31] VITALS: BMI 33.2
--- NOTE | 2017-06-24 01:16 | DR.GENAD ---
HPI - PCP Primary Care Physician: desirae - HPI Comment HPI Comment: HISTORY BELOW. 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 INJURED LEFT KNEE, LT HIP AND BOTH LEGS ALSO. INCREASING PAIN SINCE. Chief Complaint:: pt has lac to lt lower leg below the knee pt hit it on the mannequin molder door today at 2 or 3 - Nurses notes reviewed Nurses Notes Review: Yes - Source History Provided: Patient - Mode of Arrival Mode of Arrival: Ambulatory - Timing Onset of Chief Complaint: 06/23/17 Came on: Suddenly - Duration Duration: Constant Duration: Hours - Severity Severity: Moderate PMH - PMH Past Medical History: Yes Past Medical History: Arthritis, Diabetes, Hypertension Past Surgical History: Yes Surgical History: Hysterectomy - Family History History of Family Medical Conditions: Yes Family Medical History: Diabetes Mellitus, [place], Coronary Artery Disease, Heart Failure, Sudden Cardiac , Hypertension - Social History Does any household member use tobacco: No Do you use any recreational Drugs:: No Lives With: Family Lives Where: Home - infectious screening In the last 2 months have you had wt loss of >10#?: NO Have you had fever, night sweats or hemotysis?: No Have you traveled outside the country in the last 6 months?: No Isolation: Standard ROS - Review of Systems Constitutional: No Symptoms Reported Eyes: No Symptoms Reported ENTM: No Symptoms Reported Respiratoy: No Symptoms Reported Cardiovascular: No Symptoms Reported Gastrointestinal/Abdominal: No Symptoms Reported Genitourinary: No Symptoms Reported Neurological: No Symptoms Reported Musculoskeletal: Left, Hip, Knee Integumentary: Other (2CM LAC BELOW LEFT KNEE.) Hematologic/Lymphatic: No Symptoms Reported Endocrine: No Symptoms Reported All Other Systems: Reviewed and Negative PE - Vital Signs Vitals: Temperature 97.6 F Pulse Rate 65 Respiratory Rate 18 Blood Pressure [] 157/86 Blood Pressure [] 161/82 Blood Pressure 172/89 O2 Sat by Pulse Oximetry 98 - General Limitations: No Limitations General Appearance: Alert - Head Head Exam: Normal Inspection - Eyes Eye exam: Normal Appearance - ENT ENT Exam: Normal External Ear Exam External Ear Exam: Normal External Inspection TM/Canal Exam: Bilateral Normal Mouth Exam: Normal Inspection Throat Exam: Normal Inspection - Neck Neck Exam: Trachea Midline - Chest Chest Inspection: Symmetric Chest Wall Rise - Respiratory Respiratory Exam: Normal Lung Sounds Bilat Respiratory Exam: Bilateral Clear to Auscultation - Cardiovascular Cardiovascular Exam: Regular Rate, Normal Rhythm, Normal Heart Sounds - Abdominal Exam Abdominal Exam: Normal Bowel Sounds, Soft. negative: Tenderness - Extremities Extremities Exam: Tenderness (LEFT HIP AND LEFT KNEE TENDER. CHUCK WITH PAIN.) - Back Back Exam: Normal Inspection - Neurologic Neurological Exam: Alert, Oriented X3 - Psychiatric Psychiatric Exam: Anxious - Skin Skin Exam: Erythema (2CM LAC BELOW LT KNEE.) MDM - Differential Diagnosis Differential Diagnosis: CONTUSION, AND FRACTURE LT KNEE. LAC LEFT KNEE. Course - Treatment Treatment: SEE ORDERS. - Education/Counseling Education/Counseling: Patient, Education Educated On: Treatment, Diagnosis, Needs for Follow Up ROR - XRAY XRAY Interpreted by: Radiologist Procedures - Laceration/Wound Repair Left Knee Wound Length (cm): 2 Wound's Depth, Shape: Linear Wound Explored: clean Betadine Prep?: Yes Anesthesia: 2% Lidocaine Wound Debrided: minimal Wound Repaired With: sutures Suture Size/Type: 4:0, Ethilion Layer Closure?: No Sterile Dressing Applied?: Yes Splint Applied?: No Sling Applied?: No - Diagnosis Discharge Problem: Contusion of left knee Qualifiers: Encounter type: initial encounter Qualified Code(s): S80.02XA - Contusion of left knee, initial encounter Sprain of left knee Qualifiers: Encounter type: initial encounter Involved ligament of knee: unspecified ligament Qualified Code(s): S83.92XA - Sprain of unspecified site of left knee, initial encounter Laceration of left knee Qualifiers: Encounter type: initial encounter Qualified Code(s): S81.012A - Laceration without foreign body, left knee, initial encounter Sprain of left hip Qualifiers: Encounter type: initial encounter Qualified Code(s): S73.102A - Unspecified sprain of left hip, initial encounter - Discharge Plan Condition: Stable Prescriptions: Cephalexin [KEFLEX CAP 500 MG *] 500 mg PO TID #21 cap Ibuprofen [MOTRIN TAB 600 MG *] 600 mg PO TID PRN #20 tab PRN Reason: Pain/Inflammation - Follow ups/Referrals Follow ups/Referrals: Bucky Mireles [Primary Care Provider] - 3 days - Instructions Instructions: Musculoskeletal Pain, Laceration Care, Adult, [id number], Knee Pain, [id number] Additional Instructions: RETURN TO ED IF WORSE. SUTURE OUT IN 10 DAYS.
[2017-06-24] MEDS ORDERED: TORADOL 60 MG VIAL IM ONE (01:17)
[2017-06-24] MEDS ORDERED: NORFLEX INJ IM ONE (01:17)
[2017-06-24] MEDS ORDERED: TORADOL 60 MG VIAL ONE (01:41)
[2017-06-24] MEDS ORDERED: NORFLEX INJ ONE (01:41)
--- NOTE | 2017-06-24 03:20 | RAD ---
Left hip-two views Indication: Left knee and hip pain after fall. Findings: There is mild bilateral hip joint degenerative change. There is no cortical lucency or jez lignment. SI joint DJD noted. Impression: No acute left hip fracture. Reported By:
--- NOTE | 2017-06-24 03:24 | RAD ---
Left knee-three views Indication: Left knee pain after fall. Findings: There is laceration over the tibial tuberosity. There is patellofemoral and femorotibial de generative change, without cortical lucency or malalignment. Impression: Laceration and degenerative changes without acute fracture. Reported By:
[2017-06-24 03:34] VITALS: BP 147/70
== END 2017-06-24 03:35 | disposition home or self-care (01) ==
LOC: ER 23:22
PROC: 0YQGXZZ Repair Left Knee Region, External Approach (ICD-10-PCS; principal; 2017-06-23)
DX: S80.02XA Contusion of left knee, initial encounter (principal); S83.92XA Sprain of unspecified site of left knee, initial encounter; S81.012A Laceration without foreign body, left knee, initial encounter; S73.102A Unspecified sprain of left hip, initial encounter; X58.XXXA Exposure to other specified factors, initial encounter; Y92.009 Unspecified place in unspecified non-institutional (private) residence as the place of occurrence of the external cause
CPT/HCPCS: 12001; 73501; 73564; 96372; 99282; 99283; J1885; J2360

== ENCOUNTER 2017-07-07 19:29 | Emergency (ER) | payer OTHER, MEDICAID ==
[2017-07-07 19:34] VITALS: BMI 34.0
[2017-07-07] MEDS ORDERED: NITROSTAT SL PRN (20:04)
[2017-07-07] MEDS ORDERED: ASPIRIN 81 MG CHEWTAB PO ONE (20:06)
--- NOTE | 2017-07-07 20:06 | DR.GENAD ---
HPI - PCP Primary Care Physician: JORGE - Complaint/Symptoms Chief Complaint Doctors Comments: CHEST PAIN Chief Complaint:: PT STATES" i'M BURNING IN MY CHEST I TOOK GI COCKTAIL IT DIDN' T HELP" - Nurses notes reviewed Nurses Notes Review: Yes - Source History Provided: Patient - Mode of Arrival Mode of Arrival: Ambulatory - Timing Onset of Chief Complaint: 07/07/17 Came on: Suddenly - Duration Duration: Constant Duration: Hours - Severity Severity: Moderate PMH - PMH Past Medical History: Yes Past Medical History: Arthritis, Diabetes, Hypertension Past Surgical History: Yes Surgical History: Cholecystectomy, Hysterectomy, Ortho Surgery Past Surgical History Comment: RT KNEE REPLACEMENT - Family History History of Family Medical Conditions: Yes Family Medical History: Diabetes Mellitus, [place], Coronary Artery Disease, Heart Failure, Sudden Cardiac , Hypertension - Social History Does any household member use tobacco: No Do you use any recreational Drugs:: No Lives With: Family Lives Where: Home - infectious screening In the last 2 months have you had wt loss of >10#?: NO Have you had fever, night sweats or hemotysis?: No Have you traveled outside the country in the last 6 months?: No Isolation: Standard ROS - Review of Systems Constitutional: No Symptoms Reported Eyes: No Symptoms Reported ENTM: No Symptoms Reported Respiratoy: No Symptoms Reported Cardiovascular: Chest Pain Gastrointestinal/Abdominal: Nausea Genitourinary: No Symptoms Reported. negative: Dysuria, Frequency, Hematuria Neurological: No Symptoms Reported Musculoskeletal: No Symptoms Reported Integumentary: No Symptoms Reported Hematologic/Lymphatic: No Symptoms Reported Endocrine: No Symptoms Reported All Other Systems: Reviewed and Negative PE - Vital Signs Vitals: Temperature 98.2 F Pulse Rate [Apical] 62 Pulse Rate 76 Respiratory Rate 16 Blood Pressure [Right Arm] 157/86 Blood Pressure [Left Arm] 141/78 Blood Pressure 151/82 O2 Sat by Pulse Oximetry 97 ROR - Labs Reviewed Result Diagrams: 07/07/17 20:10 07/07/17 20:10 Laboratory: WBC 8.2 X10^3/uL (3.6-10.0) 07/07/17 20:10 RBC 4.18 X10^6/uL (3.5-5.4) 07/07/17 20:10 Hgb 12.8 g/dL (12.0-16.0) 07/07/17 20:10 Hct 37.7 % (36.0-47.0) 07/07/17 20:10 MCV 90.1 fL (80.0-100.0) 07/07/17 20:10 MCH 30.5 pg (27.0-34.0) 07/07/17 20:10 MCHC 33.8 g/dL (33.0-35.0) 07/07/17 20:10 RDW 14.1 % (11.6-16.5) 07/07/17 20:10 Plt Count 256 X10^3/uL (150.0-450.0) 07/07/17 20:10 MPV 6.7 fL (7.4-11.0) L 07/07/17 20:10 Neut % 30.7 % (42.0-75.0) L 07/07/17 20:10 Lymph % 56.9 % (21.0-51.0) H 07/07/17 20:10 [place] % 9.4 % (0.0-13.0) 07/07/17 20:10 Eos % 2.4 % (0.9-2.9) 07/07/17 20:10 Baso % 0.6 % (0.2-1.0) 07/07/17 20:10 Neut # 2.5 x10^3/uL (2.2-4.8) 07/07/17 20:10 Lymph # 4.6 X10^3/uL (1.3-2.9) H 07/07/17 20:10 [place] # 0.8 x10^3/uL (0.3-0.8) 07/07/17 20:10 Eos # 0.2 x10^3/uL (0.0-0.2) 07/07/17 20:10 Baso # 0.0 X10^3/uL (0.0-0.1) 07/07/17 20:10 Absolute Nucleated RBC 0.0 /100WBC 07/07/17 20:10 INR Target Range - 07/07/17 20:10 INR 0.90 (0.8-1.3) 07/07/17 20:10 PTT 26.3 SECONDS (22.9-36.5) 07/07/17 20:10 PTT Comment - 07/07/17 20:10 Sodium 140 mmol/L (136-145) 07/07/17 20:10 Corrected Sodium TNP 07/07/17 20:10 Potassium 3.9 mmol/L (3.5-5.1) 07/07/17 20:10 Chloride 103 mmol/L (98-107) 07/07/17 20:10 Carbon Dioxide 31.8 mmol/L (21-32) 07/07/17 20:10 BUN 23 mg/dL (7-18) H 07/07/17 20:10 Creatinine 1.50 mg/dL (0.55-1.02) H 07/07/17 20:10 Est GFR (MDRD) Af Amer 47 (>60) L 07/07/17 20:10 Est GFR (MDRD) Non-Af 38 (>60) L 07/07/17 20:10 Glucose 104 mg/dL (65-99) H 07/07/17 20:10 Calcium 9.3 mg/dL (8.5-10.1) 07/07/17 20:10 Corrected Calcium TNP 07/07/17 20:10 Magnesium 1.8 mg/dL (1.7-2.9) 07/07/17 20:10 Total Bilirubin 0.20 mg/dL (0.2-1.0) 07/07/17 20:10 AST 14 Units/L (15-37) L 07/07/17 20:10 ALT 22 Units/L (12-78) 07/07/17 20:10 Alkaline Phosphatase 49 Units/L (46-116) 07/07/17 20:10 Creatine Kinase 132 Units/L (26-192) 07/07/17 20:10 CK-MB (CK-2) < 1.0 ng/mL (0-4.0) 07/07/17 20:10 CK/CKMB % Calc 0.8 % (<4) 07/07/17 20:10 Troponin I < 0.02 ng/mL (0-1.5) 07/07/17 20:10 Total Protein 7.5 g/dL (6.4-8.2) 07/07/17 20:10 Albumin 3.6 g/dL (3.4-5.0) 07/07/17 20:10 Globulin 3.9 g/dL (2.5-4.5) 07/07/17 20:10 Albumin/Globulin Ratio 0.9 Ratio (1.1-2.1) L 07/07/17 20:10 - Discharge Plan Condition: Stable - Follow ups/Referrals Follow ups/Referrals: Bucky Mireles [Primary Care Provider] - 3 days - Instructions Instructions: Chest Pain Observation Additional Instructions: RETURN TO ED IF WORSE.
[2017-07-07] MEDS ORDERED: ASPIRIN 81 MG CHEWTAB ONE (20:08)
[2017-07-07 20:15] LABS: BASOPHILS % (AUTO) 0.6 % (0.2-1.0); EOSINOPHILS # (AUTO) 0.2 x10^3/uL (0.0-0.2); EOSINOPHILS % (AUTO) 2.4 % (0.9-2.9); HEMATOCRIT 37.7 % (36.0-47.0); HEMOGLOBIN 12.8 g/dL (12.0-16.0); LYMPHOCYTES # (AUTO) 4.6 X10^3/uL (1.3-2.9); LYMPHOCYTES % (AUTO) 56.9 % (21.0-51.0); MEAN CORPUSCULAR HEMOGLOBIN 30.5 pg (27.0-34.0); MEAN CORPUSCULAR HGB CONC 33.8 g/dL (33.0-35.0); MEAN CORPUSCULAR VOLUME 90.1 fL (80.0-100.0); MEAN PLATELET VOLUME 6.7 fL (7.4-11.0); MONOCYTES # (AUTO) 0.8 x10^3/uL (0.3-0.8); MONOCYTES % (AUTO) 9.4 % (0.0-13.0); NEUTROPHILS # (AUTO) 2.5 x10^3/uL (2.2-4.8); NEUTROPHILS % (AUTO) 30.7 % (42.0-75.0); PLATELET COUNT 256 X10^3/uL (150.0-450.0); RED BLOOD COUNT 4.18 X10^6/uL (3.5-5.4); RED CELL DISTRIBUTION WIDTH 14.1 % (11.6-16.5); WHITE BLOOD COUNT 8.2 X10^3/uL (3.6-10.0)
--- NOTE | 2017-07-07 20:30 | RAD ---
History: Chest pain Study: Portable AP chest Comparison: October 29, 2016 Findings: The lungs are clear and the heart and mediastinum are unremarkable. No significant bony abn ormality is demonstrated. Impression: Negative Reported By:
[2017-07-07 20:35] LABS: BLOOD UREA NITROGEN 23 mg/dL (7-18); CALCIUM 9.3 mg/dL (8.5-10.1); CARBON DIOXIDE 31.8 mmol/L (21-32); CHLORIDE 103 mmol/L (98-107); SODIUM 140 mmol/L (136-145); TROPONIN I < 0.02 ng/mL (0-1.5); eGFR BLACK RACES 47 (>60); eGFR NON BLACK RACES 38 (>60)
[2017-07-07 20:40] LABS: ALANINE AMINOTRANSFERASE 22 Units/L (12-78); ALBUMIN 3.6 g/dL (3.4-5.0); ALKALINE PHOSPHATASE 49 Units/L (46-116); ASPARTATE AMINO TRANSFERASE 14 Units/L (15-37); CKMB % 0.8 % (<4); CREATINE KINASE 132 Units/L (26-192); CREATINE KINASE MB < 1.0 ng/mL (0-4.0); MAGNESIUM 1.8 mg/dL (1.7-2.9); TOTAL PROTEIN 7.5 g/dL (6.4-8.2)
[2017-07-07 21:43] VITALS: BP 131/95
[2017-07-07] MEDS ORDERED: MORPHINE SULFATE INJ 4 MG IVP ONE (21:49)
[2017-07-07] MEDS ORDERED: MORPHINE SULFATE INJ 4 MG ONE (21:49)
[2017-07-07] MEDS ORDERED: MORPHINE SULFATE INJ 4 MG IM ONE (21:51)
[2017-07-07] MEDS ORDERED: ZOFRAN INJ 4 MG VIAL ONE (21:53)
[2017-07-07] MEDS ORDERED: ZOFRAN INJ 4 MG VIAL IM ONE (21:56)
== END 2017-07-07 22:29 | disposition home or self-care (01) ==
LOC: ER 19:44
DX: R07.89 Other chest pain (principal)
CPT/HCPCS: 36415; 71045; 80053; 82550; 82553; 83735; 84484; 85025; 85610; 85730; 93005; 96372; 99282; 99283; J2270; J2405

== ENCOUNTER → 2017-08-20 | Outpatient (CLI) | payer OTHER, MEDICAID ==
[2017-08-20 10:55] LABS: BASOPHILS % (AUTO) 0.5 % (0.2-1.0); EOSINOPHILS # (AUTO) 0.2 x10^3/uL (0.0-0.2); EOSINOPHILS % (AUTO) 2.4 % (0.9-2.9); HEMATOCRIT 37.6 % (36.0-47.0); HEMOGLOBIN 12.8 g/dL (12.0-16.0); LYMPHOCYTES # (AUTO) 3.8 X10^3/uL (1.3-2.9); MEAN CORPUSCULAR HEMOGLOBIN 30.4 pg (27.0-34.0); MEAN CORPUSCULAR HGB CONC 34.1 g/dL (33.0-35.0); MEAN CORPUSCULAR VOLUME 89.1 fL (80.0-100.0); MONOCYTES # (AUTO) 0.6 x10^3/uL (0.3-0.8); MONOCYTES % (AUTO) 8.8 % (0.0-13.0); NEUTROPHILS # (AUTO) 2.4 x10^3/uL (2.2-4.8); NEUTROPHILS % (AUTO) 34.3 % (42.0-75.0); PLATELET COUNT 318 X10^3/uL (150.0-450.0); RED BLOOD COUNT 4.22 X10^6/uL (3.5-5.4); RED CELL DISTRIBUTION WIDTH 13.8 % (11.6-16.5); WHITE BLOOD COUNT 7.1 X10^3/uL (3.6-10.0)
[2017-08-20 11:02] LABS: ALBUMIN 3.6 g/dL (3.4-5.0); BILIRUBIN,DIRECT 0.08 mg/dL (0-0.2); TOTAL PROTEIN 7.6 g/dL (6.4-8.2)
[2017-08-20 11:06] LABS: SERUM PREGNANCY TEST, QUAL NEGATIVE <10 mIU/mL
== END | disposition home or self-care (01) ==
LOC: LAB 10:27
PROVIDERS: ATTEND Internal Medicine Gastroenterology
DX: B18.2 Chronic viral hepatitis C (principal)
CPT/HCPCS: 36415; 80076; 84703; 85025; 87522

== ENCOUNTER → 2017-10-02 | Outpatient (CLI) | payer OTHER, MEDICAID ==
[~2017-10-02] MED LIST: NS 100 ML IV 100 ML IV ONE
[2017-10-02 11:31] LABS: CREATININE 1.51 mg/dL (0.55-1.02)
--- NOTE | 2017-10-02 12:58 | CT ---
History: Lower abdominal and pelvic pain for 1 week Study: CT abdomen and pelvis utilizing 100 mL Omnipaque 350 IV contrast. Sagittal and coronal reforma tions were provided. Oral contrast was also administered. Comparison: None Findings: The liver and spleen and pancreas and kidneys and adrenal glands are unremarkable. The gall bladder surgically absent. There is no biliary significant dilatation. There is no ascites or adenopa thy or bowel distention. The there is however smooth muscle hypertrophy in the sigmoid colon with min imal diverticular formation. No inflammatory changes are demonstrated. The appendix is normal. The ut erus is absent. There is no adnexal mass. Impression: Mild sigmoid diverticular disease, no acute disease in the abdomen or pelvis is demonstra rhonda. Reported By:
== END ==
LOC: RAD 10:57
DX: R10.2 Pelvic and perineal pain (principal); K57.30 Diverticulosis of large intestine without perforation or abscess without bleeding
CPT/HCPCS: 36415; 74177; 82565; 84520; A4222

== ENCOUNTER 2018-08-10 15:03 | Observation (INO) ==
[2018-08-10 15:07] VITALS: BMI 34.9
[2018-08-10 15:34] LABS: BASOPHILS % (AUTO) 0.7 % (0.2-1.0); EOSINOPHILS # (AUTO) 0.1 x10^3/uL (0.0-0.2); EOSINOPHILS % (AUTO) 1.5 % (0.9-2.9); HEMATOCRIT 39.2 % (36.0-47.0); HEMOGLOBIN 13.3 g/dL (12.0-16.0); LYMPHOCYTES # (AUTO) 2.6 X10^3/uL (1.3-2.9); LYMPHOCYTES % (AUTO) 37.6 % (21.0-51.0); MEAN CORPUSCULAR HEMOGLOBIN 30.9 pg (27.0-34.0); MEAN CORPUSCULAR VOLUME 90.9 fL (80.0-100.0); MEAN PLATELET VOLUME 7.2 fL (7.4-11.0); MONOCYTES # (AUTO) 0.4 x10^3/uL (0.3-0.8); MONOCYTES % (AUTO) 5.9 % (0.0-13.0); NEUTROPHILS # (AUTO) 3.8 x10^3/uL (2.2-4.8); NEUTROPHILS % (AUTO) 54.3 % (42.0-75.0); PLATELET COUNT 247 X10^3/uL (150.0-450.0); RED BLOOD COUNT 4.32 X10^6/uL (3.5-5.4); RED CELL DISTRIBUTION WIDTH 13.2 % (11.6-16.5)
--- NOTE | 2018-08-10 15:36 | RAD ---
Exam: Portable chest History: 53-year-old female with chest pain. Comparison: Previous chest radiograph from 01/02/2018. Findings: Heart size and pulmonary vasculature are normal. Lungs are clear with no infiltrate or significant effusion either side. Bony thorax is unremarkable. Impression: No acute cardiopulmonary abnormality is seen on this exam. Reported By:
[2018-08-10 15:41] LABS: BLOOD UREA NITROGEN 11 mg/dL (7-18); CALCIUM 9.4 mg/dL (8.5-10.1); CARBON DIOXIDE 29.5 mmol/L (21-32); CHLORIDE 101 mmol/L (98-107); COR NA(FOR HYPERGLY) 142 mmol/L (136-145); CREATININE 1.38 mg/dL (0.55-1.02); SODIUM 136 mmol/L (136-145); eGFR NON BLACK RACES 42 (>60)
--- NOTE | 2018-08-10 16:46 | DR.CP ---
HPI Time Seen Time Seen by Provider: 08/10/18 15:22 PCP Primary Care Physician: JORGE HPI Comment HPI Comment: PATIENT TOOK PERCOCET AND TRAMADOL WITH MINIMAL RELIEF. CONDITION GETTING WORSE. Complaint Chief Complaint Doctor Comments: INTERMITTED PRECORDIAL CHEST PRESSURE RADIATING TO LEFT ARM TIMES 4 DAYS. Chief Complaint:: PT C/O CHEST PRESSURE AND LT ARM PAIN THAT IS COMING AND GOING IN PAIN. PT DESCRIBES HER CHEST PAIN A PRESSURE TYPE PAIN. PT STATES HER LT ARM HAS A KNOT ON IT THAT IS HAVING PAIN. PT ALSO STATES HER LT EAR IS HURTING AND ON TOP OF HER LT FOOT IS HURTING ALSO. PT STATES SHE HAS BEEN HAVING THESE PROBLEMS FOR THE PAST 4 DAYS. Self Treatment fo Chief Complaint: TRAMADOL AND PERCOCET Reviewed Nurses Notes Review: Yes Source History Provided: Patient Mode of Arrival Mode of Arrival: Ambulatory Timing Onset of Chief Complaint: 08/06/18 Came on: Suddenly Pain: Present Now Duration Duration: Intermittent Duration: Days Location Location of Chest Pain: Left and Chest Chest Pain Radiation Location: Left Arm Context Onset: At rest Cardiac Risk Factors: Smoker, Hyperlipidemia, HTN and Diabetes PE Risk Factors: None Quality Quality: Pressure like Severity Severity: Moderate Modifying Factors Worsens: Nothing Impoves: Nothing Associated Signs and Symptoms Associated Signs and Symptoms: Shortness of Breath PMH PMH Past Medical History: Yes Past Medical History: Diabetes, Dyslipidemia, Headaches and Hypertension Past Surgical History: Yes Family History History of Family Medical Conditions: Yes Family Medical History: Diabetes Mellitus, [place], Coronary Artery Disease, Heart Failure, Sudden Cardiac and Hypertension Social History Does any household member use tobacco: No Alcohol Use: None Do you use any recreational Drugs:: No Lives With: Family Lives Where: Home infectious screening In the last 2 months have you had wt loss of >10#?: NO Have you had fever, night sweats or hemotysis?: No Have you traveled outside the country in the last 6 months?: No Isolation: Standard ROS Review of Systems Constitutional: Weakness and Fatigue Eyes: No Symptoms Reported ENTM: No Symptoms Reported Respiratoy: Short of Breath Cardiovascular: Chest Pain Gastrointestinal/Abdominal: No Symptoms Reported Genitourinary: No Symptoms Reported Neurological: Weakness Musculoskeletal: No Symptoms Reported, Left, Arm (LEFT ARM PAIN.) and Forearm (LT FOREARM PAIN) Integumentary: No Symptoms Reported Hematologic/Lymphatic: No Symptoms Reported Endocrine: No Symptoms Reported Psychiatric: No Symptoms Reported All Other Systems: Reviewed and Negative PE Vitals Vitals: Temperature 97.8 F Pulse Rate [Right Brachial] 73 Pulse Rate 52 Respiratory Rate 18 Blood Pressure [Right Arm] 116/81 Blood Pressure [Left Arm] 122/61 Blood Pressure 138/79 O2 Sat by Pulse Oximetry 99 General Limitations: No Limitations General Appearance: Alert and In No Apparent Distress Head Head Exam: Normal Inspection Eyes Eye exam: Normal Appearance ENT ENT Exam: Normal Exam Chest Chest Inspection: Normal Inspection and Symmetric Chest Wall Rise Respiratory Respiratory Exam: Normal Lung Sounds Bilat Respiratory Exam: Bilateral: Clear to Auscultation Cardiovascular Cardiovascular Exam: Regular Rate and Normal Rhythm Pulse: Normal Edema: Normal Abdominal Exam Abdominal Exam: Normal Inspection, Normal Bowel Sounds and Soft Extremities Extremities Exam: Normal Inspection Back Back Exam: Normal Inspection Neurologic Neurological Exam: Alert and Oriented X3; negative Motor Sensory Deficit Psychiatric Psychiatric Exam: Normal Affect and Normal Mood Skin Skin Exam: Warm, Dry, Intact and Normal Color MDM Differential Diagnosis Differential Diagnosis: Angina, Chest Wall Pain, Costochondritis, Gastritis, Myocardial Infarction, Pericarditis, Pleuritis, Pneumonia and Pneumothorax COURSE Treatment Treatment: SEE ORDERS. Consultation Consultation Comments: DR. PATEL WILL ADMIT PATIENT. Education/Counseling Education/Counseling: Patient Educated On: Diagnosis ROR Labs Reviewed Laboratory Results Reviewed?: Yes Result Diagrams: 08/12/18 05:04 08/12/18 08:06 Laboratory: WBC 5.9 X10^3/uL (3.6-10.0) 08/12/18 05:04 RBC 4.18 X10^6/uL (3.5-5.4) 08/12/18 05:04 Hgb 12.8 g/dL (12.0-16.0) 08/12/18 05:04 Hct 37.7 % (36.0-47.0) 08/12/18 05:04 MCV 90.4 fL (80.0-100.0) 08/12/18 05:04 MCH 30.7 pg (27.0-34.0) 08/12/18 05:04 MCHC 34.0 g/dL (33.0-35.0) 08/12/18 05:04 RDW 12.8 % (11.6-16.5) 08/12/18 05:04 Plt Count 208 X10^3/uL (150.0-450.0) 08/12/18 05:04 MPV 7.2 fL (7.4-11.0) L 08/12/18 05:04 Neut % (Auto) 51.5 % (42.0-75.0) 08/12/18 05:04 Lymph % (Auto) 36.5 % (21.0-51.0) 08/12/18 05:04 [place] % (Auto) 9.7 % (0.0-13.0) 08/12/18 05:04 Eos % (Auto) 1.9 % (0.9-2.9) 08/12/18 05:04 Baso % (Auto) 0.4 % (0.2-1.0) 08/12/18 05:04 Neut # (Auto) 3.0 x10^3/uL (2.2-4.8) 08/12/18 05:04 Lymph # (Auto) 2.1 X10^3/uL (1.3-2.9) 08/12/18 05:04 [place] # (Auto) 0.6 x10^3/uL (0.3-0.8) 08/12/18 05:04 Eos # (Auto) 0.1 x10^3/uL (0.0-0.2) 08/12/18 05:04 Baso # (Auto) 0.0 X10^3/uL (0.0-0.1) 08/12/18 05:04 Absolute Nucleated RBC 0.1 /100WBC 08/12/18 05:04 INR Target Range - 08/10/18 15:25 INR 0.92 (0.8-1.3) 08/10/18 15:25 APTT 24.3 SECONDS (22.9-36.5) 08/10/18 15:25 PTT Comment - 08/10/18 15:25 Sodium 138 mmol/L (136-145) 08/12/18 05:04 Corrected Sodium 140 mmol/L (136-145) 08/12/18 05:04 Potassium 3.8 mmol/L (3.5-5.1) 08/12/18 08:06 Chloride 100 mmol/L (98-107) 08/12/18 05:04 Carbon Dioxide 30.0 mmol/L (21-32) 08/12/18 05:04 BUN 12 mg/dL (7-18) 08/12/18 05:04 Creatinine 1.29 mg/dL (0.55-1.02) H 08/12/18 05:04 Est GFR (MDRD) Af Amer 55 (>60) L 08/12/18 05:04 Est GFR (MDRD) Non-Af 46 (>60) L 08/12/18 05:04 Glucose 184 mg/dL (65-99) H 08/12/18 05:04 POC Glucose (mg/dL) 281 mg/dL (65-99) H 08/12/18 11:39 Calcium 9.0 mg/dL (8.5-10.1) 08/12/18 05:04 Corrected Calcium 9.6 mg/dL (8.5-10.1) 08/12/18 05:04 Magnesium 2.1 mg/dL (1.7-2.9) 08/11/18 05:00 Total Bilirubin 0.30 mg/dL (0.2-1.0) 08/12/18 05:04 AST 45 Units/L (15-37) H 08/12/18 05:04 ALT 33 Units/L (12-78) 08/12/18 05:04 Alkaline Phosphatase 65 Units/L (46-116) 08/12/18 05:04 Creatine Kinase 69 Units/L (26-192) 08/11/18 05:00 CK-MB (CK-2) < 1.0 ng/mL (0-4.0) 08/11/18 05:00 CK/CKMB % Calc 1.5 % (<4) 08/11/18 05:00 Troponin I < 0.02 ng/mL (0-1.5) 08/11/18 05:00 Total Protein 6.8 g/dL (6.4-8.2) 08/12/18 05:04 Albumin 3.2 g/dL (3.4-5.0) L 08/12/18 05:04 Globulin 3.6 g/dL (2.5-4.5) 08/12/18 05:04 Albumin/Globulin Ratio 0.9 Ratio (1.1-2.1) L 08/12/18 05:04 Triglycerides 158 mg/dL (0-150) H 08/11/18 05:00 Cholesterol 143 mg/dL (0-200) 08/11/18 05:00 LDL Cholesterol, Calc 73 mg/dL (0-100) 08/11/18 05:00 HDL Cholesterol 38 mg/dL (40-60) L 08/11/18 05:00 Cholesterol/HDL Ratio 3.8 (0.0-5.0) 08/11/18 05:00 Specimen Type Clean catch urine 08/11/18 00:10 Urine Color Yellow (YELLOW) 08/11/18 00:10 Urine Appearance Clear (CLEAR) 08/11/18 00:10 Urine pH 6.5 (5.0 - 8.0) 08/11/18 00:10 Ur Specific [place] 1.010 (1.000-1.030) 08/11/18 00:10 Urine Protein Negative (NEGATIVE) 08/11/18 00:10 Urine Glucose (UA) 4+ (NEGATIVE) 08/11/18 00:10 Urine Ketones Negative (NEGATIVE) 08/11/18 00:10 Urine Occult Blood Negative (NEGATIVE) 08/11/18 00:10 Urine Nitrite Negative (NEGATIVE) 08/11/18 00:10 Urine Bilirubin Negative (NEGATIVE) 08/11/18 00:10 Urine Urobilinogen Normal (NORMAL) 08/11/18 00:10 Ur Leukocyte Esterase Negative (NEGATIVE) 08/11/18 00:10 Urine RBC None seen /HPF (NONE SEEN) 08/11/18 00:10 Urine WBC None seen /HPF (NONE SEEN) 08/11/18 00:10 Ur Squamous Epith Cells Few /HPF (NEGATIVE) 08/11/18 00:10 Urine Bacteria Negative /HPF (NEGATIVE) 08/11/18 00:10 Ur Culture Indicated? No/not indicated 08/11/18 00:10 XRAY XRAY Interpreted by: Radiologist XRAY Findings: REPORT ON RECORD NOTED AND DISCUSS WITH PATIENT. EKG Rate: 54 [place]: Normal Rhythm: SB Instructions Instructions: Type 2 Diabetes Mellitus, Diagnosis, Adult Diabetes Mellitus and Foot Care Tips for Eating Away From Home If You Have Diabetes How to Take Your Blood Pressure, [id number] Diabetes Mellitus and Standards of Medical Care Coping With Diabetes Diabetic Nephropathy Hand Washing, Dhra-nq-Favt Nonspecific Chest Pain, [id number]-[id number] Type 2 Diabetes Mellitus, Self Care, Adult, Ndkw-[id number] Hypertension, Crwr-bl-Ahkh Diabetic Retinopathy Preventing Hypertension Managing Your Hypertension Blood Glucose Monitoring, Adult Diabetes Mellitus and Nutrition Forms: Patient Portal
[2018-08-10] MEDS ORDERED: K-LYTE EFFERVESCENT PO ONE (16:58)
[2018-08-10 17:05] LABS: CKMB % 0.4 % (<4); CREATINE KINASE 79 Units/L (26-192); CREATINE KINASE MB 0.3 ng/mL (0-4.0); MAGNESIUM 1.6 mg/dL (1.7-2.9); TROPONIN I 0.01 ng/mL (0-1.5)
[2018-08-10] MEDS ORDERED: K-LYTE EFFERVESCENT ONE (17:12)
[2018-08-10] MEDS ORDERED: MORPHINE SULFATE INJ 2 MG INJ ONE ×2 (17:19→17:22)
[2018-08-10] MEDS: MORPHINE SULFATE INJ 4 MG IVP PRN ×2 (17:28→21:34)
[2018-08-10] MEDS: ZOFRAN INJ 4 MG VIAL IVP PRN (17:28)
[2018-08-10 17:44] LABS: ALANINE AMINOTRANSFERASE 22 Units/L (12-78); ALBUMIN 3.5 g/dL (3.4-5.0); ALKALINE PHOSPHATASE 63 Units/L (46-116); ASPARTATE AMINO TRANSFERASE 13 Units/L (15-37); TOTAL PROTEIN 7.4 g/dL (6.4-8.2)
[2018-08-10] MEDS ORDERED: LEVSIN/MAALOX/LIDOC VISC PO PRN (17:47)
[2018-08-10] MEDS ORDERED: FLUVIRIN IM ONE (18:30)
[2018-08-10] MEDS: SNACK - Diabetic Appropriate PO SCH (20:00)
[2018-08-10] MEDS ORDERED: GLUCOPHAGE ONE (20:09)
[2018-08-10] MEDS: GLUCOPHAGE PO SCH (20:54)
[2018-08-10] MEDS: PROTONIX INJ 40 MG VIAL IVP SCH (20:55)
[2018-08-10] MEDS: LEVEMIR SC SCH (20:56)
[2018-08-10] MEDS ORDERED: ERGOCALCIFEROL PO SCH (21:00)
[2018-08-10] MEDS: CATAPRES TAB 0.1 MG PO SCH (21:08)
[2018-08-10] MEDS ORDERED: POTASSIUM CHL 40 MEQ/NS 0.45% 500 ML IV PRN (22:07)
[2018-08-10] MEDS ORDERED: KLOR-CON PO PRN (22:07)
[2018-08-10] MEDS ORDERED: K-RIDER 10 MEQ/NS 100 ML 10 MEQ/100 ML BAG IV PRN (22:07)
[2018-08-10] MEDS ORDERED: POTASSIUM CHLORIDE LIQ 20 MEQ UDC PO PRN (22:07)
[2018-08-10] MEDS ORDERED: POTASSIUM CHL 60 MEQ/NS 0.45% 500 ML IV PRN (22:07)
[2018-08-10] MEDS ORDERED: K-DUR TAB 20 MEQ PO PRN (22:07)
[2018-08-10] MEDS ORDERED: MICRO K EXTEN CAP 10 MEQ PO PRN (22:07)
[2018-08-10] MEDS: NS 250 ML IV 250 ML IV SCH (22:46)
[2018-08-10] MEDS: MAGNESIUM SULFATE 1 GRAM/100 mL PREMIX 1 GM/100 ML BAG IV PRN ×2 (22:46→23:56)
[2018-08-10 23:32] LABS: CREATINE KINASE 75 Units/L (26-192); TROPONIN I < 0.02 ng/mL (0-1.5)
[2018-08-10 23:56] LABS: CKMB % 1.3 % (<4); CREATINE KINASE MB < 1.0 ng/mL (0-4.0)
[2018-08-11 00:30] LABS: BILIRUBIN,URINE NEGATIVE (NEGATIVE); BLOOD/HEMOGLOBIN,URINE NEGATIVE (NEGATIVE); GLUCOSE, URINE 4+ (NEGATIVE); KETONES,URINE NEGATIVE (NEGATIVE); LEUKOCYTE ESTERASE ,URINE NEGATIVE (NEGATIVE); NITRITES,URINE NEGATIVE (NEGATIVE); PH,URINE 6.5 (5.0 - 8.0); PROTEIN,URINE NEGATIVE (NEGATIVE); UROBILINOGEN,URINE NORMAL (NORMAL)
[2018-08-11 00:38] LABS: APPEARANCE,URINE CLEAR (CLEAR); COLOR,URINE YELLOW (YELLOW)
[2018-08-11 00:39] LABS: BACTERIA,URINE NEGATIVE /HPF (NEGATIVE); RBC,URINE NONE SEEN /HPF (NONE SEEN); SQUAMOUS EPITHELIAL CELL,UR FEW /HPF (NEGATIVE)
[2018-08-11] MEDS: MORPHINE SULFATE INJ 4 MG IVP PRN ×5 (02:37→21:00)
[2018-08-11] MEDS: HumuLIN R SUBCUT PRN ×4 (05:51→20:58)
[2018-08-11 06:20] LABS: BASOPHILS % (AUTO) 0.3 % (0.2-1.0); EOSINOPHILS # (AUTO) 0.1 x10^3/uL (0.0-0.2); EOSINOPHILS % (AUTO) 2.1 % (0.9-2.9); HEMATOCRIT 36.5 % (36.0-47.0); HEMOGLOBIN 12.6 g/dL (12.0-16.0); LYMPHOCYTES # (AUTO) 3.7 X10^3/uL (1.3-2.9); LYMPHOCYTES % (AUTO) 51.3 % (21.0-51.0); MEAN CORPUSCULAR HEMOGLOBIN 31.2 pg (27.0-34.0); MEAN CORPUSCULAR HGB CONC 34.5 g/dL (33.0-35.0); MEAN CORPUSCULAR VOLUME 90.5 fL (80.0-100.0); MEAN PLATELET VOLUME 7.6 fL (7.4-11.0); MONOCYTES # (AUTO) 0.6 x10^3/uL (0.3-0.8); MONOCYTES % (AUTO) 8.3 % (0.0-13.0); NEUTROPHILS # (AUTO) 2.7 x10^3/uL (2.2-4.8); PLATELET COUNT 218 X10^3/uL (150.0-450.0); RED BLOOD COUNT 4.03 X10^6/uL (3.5-5.4); WHITE BLOOD COUNT 7.2 X10^3/uL (3.6-10.0)
[2018-08-11] MEDS: ZOFRAN INJ 4 MG VIAL IVP PRN ×3 (06:31→20:58)
[2018-08-11 07:05] LABS: ALANINE AMINOTRANSFERASE 19 Units/L (12-78); ALKALINE PHOSPHATASE 55 Units/L (46-116); ASPARTATE AMINO TRANSFERASE 15 Units/L (15-37); BLOOD UREA NITROGEN 13 mg/dL (7-18); CALCIUM 9.1 mg/dL (8.5-10.1); CARBON DIOXIDE 28.9 mmol/L (21-32); COR CA(FOR HYPOALB) 9.9 mg/dL (8.5-10.1); CREATININE 1.13 mg/dL (0.55-1.02); HDL CHOLESTEROL 38 mg/dL (40-60); TOTAL PROTEIN 6.5 g/dL (6.4-8.2); TRIGLYCERIDES 158 mg/dL (0-150); eGFR NON BLACK RACES 53 (>60)
[2018-08-11 07:21] LABS: CHLORIDE 100 mmol/L (98-107); CHOL/HDL RATIO 3.8 (0.0-5.0); CHOLESTEROL 143 mg/dL (0-200); COR NA(FOR HYPERGLY) 142 mmol/L (136-145); SODIUM 138 mmol/L (136-145)
[2018-08-11 07:41] LABS: CKMB % 1.5 % (<4); CREATINE KINASE 69 Units/L (26-192); CREATINE KINASE MB < 1.0 ng/mL (0-4.0); MAGNESIUM 2.1 mg/dL (1.7-2.9); TROPONIN I < 0.02 ng/mL (0-1.5)
[2018-08-11] MEDS ORDERED: GLUCOPHAGE ONE ×2 (08:31→20:04)
[2018-08-11] MEDS ORDERED: HYZAAR 50/12.5 MG PO SCH (09:00)
[2018-08-11] MEDS: LEVEMIR SC SCH ×2 (09:04→20:59)
[2018-08-11] MEDS: VITAMIN D3 PO SCH (09:07)
[2018-08-11] MEDS: MICRO K EXTEN CAP 10 MEQ PO SCH (09:08)
[2018-08-11] MEDS: GLUCOPHAGE PO SCH ×2 (09:08→20:58)
[2018-08-11] MEDS: PROTONIX INJ 40 MG VIAL IVP SCH ×2 (09:08→20:58)
[2018-08-11] MEDS: NORVASC TAB 5 MG PO SCH (09:08)
[2018-08-11] MEDS: NS 250 ML IV 250 ML IV SCH ×2 (09:09→22:43)
[2018-08-11] MEDS: CATAPRES TAB 0.1 MG PO SCH ×2 (09:10→20:58)
[2018-08-11] MEDS: MAXZIDE 37.5/25 MG PO SCH (12:24)
[2018-08-11] MEDS: TOPROL XL PO SCH (12:24)
[2018-08-11] MEDS ORDERED: SNACK - Diabetic Appropriate PO SCH (20:00)
[2018-08-11] MEDS: SNACK - Diabetic Appropriate PO SCH (21:00)
[2018-08-12] MEDS: ZOFRAN INJ 4 MG VIAL IVP PRN ×2 (04:00→10:03)
[2018-08-12] MEDS: MORPHINE SULFATE INJ 4 MG IVP PRN ×2 (04:00→09:55)
[2018-08-12] MEDS ORDERED: MILK OF MAGNESIA PO PRN (05:03)
[2018-08-12] MEDS ORDERED: COLACE CAP 100 MG PO PRN (05:03)
[2018-08-12 05:23] LABS: BASOPHILS % (AUTO) 0.4 % (0.2-1.0); EOSINOPHILS # (AUTO) 0.1 x10^3/uL (0.0-0.2); EOSINOPHILS % (AUTO) 1.9 % (0.9-2.9); HEMATOCRIT 37.7 % (36.0-47.0); HEMOGLOBIN 12.8 g/dL (12.0-16.0); LYMPHOCYTES # (AUTO) 2.1 X10^3/uL (1.3-2.9); LYMPHOCYTES % (AUTO) 36.5 % (21.0-51.0); MEAN CORPUSCULAR HEMOGLOBIN 30.7 pg (27.0-34.0); MEAN CORPUSCULAR VOLUME 90.4 fL (80.0-100.0); MEAN PLATELET VOLUME 7.2 fL (7.4-11.0); MONOCYTES # (AUTO) 0.6 x10^3/uL (0.3-0.8); MONOCYTES % (AUTO) 9.7 % (0.0-13.0); NEUTROPHILS % (AUTO) 51.5 % (42.0-75.0); PLATELET COUNT 208 X10^3/uL (150.0-450.0); RED BLOOD COUNT 4.18 X10^6/uL (3.5-5.4); RED CELL DISTRIBUTION WIDTH 12.8 % (11.6-16.5); WHITE BLOOD COUNT 5.9 X10^3/uL (3.6-10.0)
[2018-08-12 05:36] LABS: ALBUMIN 3.2 g/dL (3.4-5.0); COR CA(FOR HYPOALB) 9.6 mg/dL (8.5-10.1); CREATININE 1.29 mg/dL (0.55-1.02); TOTAL PROTEIN 6.8 g/dL (6.4-8.2)
[2018-08-12] MEDS: HumuLIN R SUBCUT PRN ×2 (06:23→12:08)
[2018-08-12] MEDS ORDERED: GLUCOPHAGE ONE (08:22)
[2018-08-12] MEDS ORDERED: COZAAR PO SCH (09:00)
[2018-08-12] MEDS: PROTONIX INJ 40 MG VIAL IVP SCH (09:35)
[2018-08-12] MEDS: TOPROL XL PO SCH (09:35)
[2018-08-12] MEDS: GLUCOPHAGE PO SCH (09:36)
[2018-08-12] MEDS: MAXZIDE 37.5/25 MG PO SCH (09:36)
[2018-08-12] MEDS: CATAPRES TAB 0.1 MG PO SCH (09:36)
[2018-08-12] MEDS: MICRO K EXTEN CAP 10 MEQ PO SCH (09:36)
[2018-08-12] MEDS: NORVASC TAB 5 MG PO SCH (09:37)
[2018-08-12] MEDS: VITAMIN D3 PO SCH (09:37)
[2018-08-12] MEDS: LEVEMIR SC SCH (09:38)
--- NOTE | 2018-08-12 10:25 | DR.H&P ---
H&P - History & Physical for Day of: H&P Date: 08/10/18 - Chief Complaint Chief Complaint: CHEST PAIN - History of Present Illness History of Present Illness: IS A 53 YEAR OLD PATIENT OF OURS. SHE PRESENTED TO THE ER WITH COMPLAINTS OF CHEST PRESSURE AND LEFT ARM PAIN. SHE DESCRIBES PAIN PRESSURE AND INTERMITTENT. ON EXAMINATION, THERE IS A KNOT NOTED TO THE LEFT ARM. SYMPTOMS STARTED FOUR DAYS AGO. MEDICAL HISTORY INCLUDES DIABETES, DYSLIPIDEMIA, HEADACHES, AND HYPERTENSION. ON ARRIVAL, VITLAS WERE 97.0-62-20-100%-134/67. LABS WERE OBTAINED. ABNORMAL LAB VALUES INCLUDE THE FOLLOWING: POTASSIUM 3.4, CREATININE 1.38, GLUCOSE 331, MAGNESIUM 1.6, AST 13. CARDIAC ENZYMES WITHIN NORMAL LIMITS. EKG REVEALED: SINUS RHYTHM WITH HR 54. CHEST XRAY REVEALED NO ACUTE CARDIOPULMONARY ABNORMALITY. SHE WAS ADMITTED FOR FURTHER EVALUATION AND TREAMENT OF CHEST PAIN RULE OUT ACUTE DC AND BRADYCARDIA. WE PLAN TO FOLLOW UP WITH SERIAL CARDIAC ENZYMES AND EKGS. SHE WAS STARTED ON MORPHINE 4MG IV Q4H PRN PAIN, GI COCKTAIL, SLIDING SCALE INSULIN, AND THE POTASSIUM PROTOCOL. WE PLAN TO FOLLOW UP WITH AM LABS AND CONTINUE TO MONITOR. - Past Medical History Past Medical History: Hypertension, Dyslipidemia, Diabetes, Headaches - Past Surgical History Surgical History: Other - Family History Family Medical History: Diabetes Mellitus, [place], Coronary Artery Disease, Heart Failure, Sudden Cardiac , Hypertension - Social History Does any household member use tobacco: No Alcohol Use: None Drug Use: None - Medications Home Medications: codeine Allergy (Verified 06/17/17 00:04) Sulfa (Sulfonamide Antibiotics) [SULFA] Allergy (Verified 06/17/17 00:04) aspirin Adverse Reaction (Verified 07/07/17 22:04) ketorolac [From Toradol] Adverse Reaction (Verified 07/07/17 22:04) CONTINUE taking the following medications Gi Cocktail 30 ml PO QID PRN 08/10/18 [History] cholecalciferol (vitamin D3) [Vitamin D3] 5,000 unit PO QDAY 08/10/18 [History] insulin detemir U-100 [Levemir U-100 Insulin] 15 unit SUBCUT BID 08/10/18 [History] New Prescriptions losartan [Cozaar] 50 mg PO QDAY #30 tab 08/12/18 [Rx] metoprolol succinate 50 mg PO QDAY #30 tab 08/12/18 [Rx] triamterene-hydrochlorothiazid [Dyazide] 1 cap PO QDAY #30 cap 08/12/18 [Rx] - Physical Exam Vital Signs: Temperature 98.7 F Pulse Rate [Right Brachial] 82 Pulse Rate 52 Respiratory Rate 20 Blood Pressure [Right Arm] 116/81 Blood Pressure [Left Arm] 122/69 Blood Pressure 138/79 O2 Sat by Pulse Oximetry 98 - Allergies Allergies/Adverse Reactions: Allergies Allergy/AdvReac Type Severity Reaction Status Date / Time codeine Allergy Verified 06/17/17 00:04 Sulfa (Sulfonamide Allergy Verified 06/17/17 00:04 Antibiotics) [SULFA] aspirin AdvReac Verified 07/07/17 22:04 ketorolac [From Toradol] AdvReac Verified 07/07/17 22:04
[2018-08-12 12:14] VITALS: BP 122/61
--- NOTE | 2018-08-27 21:34 | PCM.PROG ---
Progress Note - Progress Note for Day of Date of Exam: 08/11/18 - Subjective Subjective: WAS ADMITTED FOR CHEST PAIN, BRADYCARDIA, AND LEFT ARM PAIN. TODAY, SHE IS ALERT AND ORIENTED, LYING IN BED ON MORNING ROUNDS. SHE COMPLAINS OF WEAKNESS TODAY, BUT DENIES CHEST PAIN. SHE CONTINUES WITH LEFT ARM/SHOULDER PAIN. HER VITALS THIS MORNING ARE 97.6-52-18-98%-117/62. HR HAS BEEN IN THE 50s THROUGHOUT THE NIGHT. LABS WERE OBTAINED. ABNORMAL LAB VALUES INCLUDE THE FOLLOWING: CREATININE 1.13, GLUCOSE 246, MAGNESIUM 1.6, ALBUMIN 3.0, TRIGLYCERIDES 158, HCL 38. CARDIAC ENZYMES AND EKGS HAVE BEEN WITHIN NORMAL LIMITS. TODAY, WE PLAN TO DECREASE HER TOPROL FROM 100MG TO 50MG PO DAILY. WE WILL D/C HYZAAR AND ORDER FOR PATIENT TO HAVE LOSARTAN 50MG PO DAILY AND DYAZIDE 1 CAPSULE PO DAILY. OTHERWISE, WE WILL FOLLOW UP WITH AM LABS AND CONTINUE TO MONITOR PATIENT. - Past Medical Family Social History Past Med/Fam/Surg Hx: No changes since H&P Allergies: Allergies codeine Allergy (Verified 06/17/17 00:04) Sulfa (Sulfonamide Antibiotics) [SULFA] Allergy (Verified 06/17/17 00:04) aspirin Adverse Reaction (Verified 07/07/17 22:04) ketorolac [From Toradol] Adverse Reaction (Verified 07/07/17 22:04) - Review of Systems ROS: No change since H&P - Vital Signs and I&O's Vital Signs: Temperature 97.8 F Pulse Rate [Right Brachial] 73 Pulse Rate 52 Respiratory Rate 18 Blood Pressure [Right Arm] 116/81 Blood Pressure [Left Arm] 122/61 Blood Pressure 138/79 O2 Sat by Pulse Oximetry 99 - Physical Exam Oriented: Normal Eyes: Normal Ear: Normal Nose: Normal Throat: Normal Respiratory: Generalized, Diminished Cardiovascular: Bradycardia. negative: S3, S4, Murmur : Dysuria Auscultation: Bowel Sounds: Normal Palpation: Normal Tenderness: Normal Skin: Normal Musculoskeletal: Left, Shoulder, Arm, Tender Psychiatric: Normal Mood Description: Calm Affect: Normal Speech Pattern: Clear, Appropriate - Laboratory and Diagnostics Result Diagrams: 08/12/18 05:04 08/12/18 08:06 Labs: Laboratory WBC 5.9 X10^3/uL (3.6-10.0) 02/13/19 05:04 RBC 4.18 X10^6/uL (3.5-5.4) 08/12/18 05:04 Hgb 12.8 g/dL (12.0-16.0) 08/12/18 05:04 Hct 37.7 % (36.0-47.0) 08/12/18 05:04 MCV 90.4 fL (80.0-100.0) 08/12/18 05:04 MCH 30.7 pg (27.0-34.0) 08/12/18 05:04 MCHC 34.0 g/dL (33.0-35.0) 08/12/18 05:04 RDW 12.8 % (11.6-16.5) 08/12/18 05:04 Plt Count 208 X10^3/uL (150.0-450.0) 08/12/18 05:04 MPV 7.2 fL (7.4-11.0) L 08/12/18 05:04 Neut % (Auto) 51.5 % (42.0-75.0) 08/12/18 05:04 Lymph % (Auto) 36.5 % (21.0-51.0) 08/12/18 05:04 [place] % (Auto) 9.7 % (0.0-13.0) 08/12/18 05:04 Eos % (Auto) 1.9 % (0.9-2.9) 08/12/18 05:04 Baso % (Auto) 0.4 % (0.2-1.0) 08/12/18 05:04 Neut # (Auto) 3.0 x10^3/uL (2.2-4.8) 08/12/18 05:04 Lymph # (Auto) 2.1 X10^3/uL (1.3-2.9) 08/12/18 05:04 [place] # (Auto) 0.6 x10^3/uL (0.3-0.8) 08/12/18 05:04 Eos # (Auto) 0.1 x10^3/uL (0.0-0.2) 08/12/18 05:04 Baso # (Auto) 0.0 X10^3/uL (0.0-0.1) 08/12/18 05:04 Absolute Nucleated RBC 0.1 /100WBC 08/12/18 05:04 INR Target Range - 08/10/18 15:25 INR 0.92 (0.8-1.3) 08/10/18 15:25 APTT 24.3 SECONDS (22.9-36.5) 08/10/18 15:25 PTT Comment - 08/10/18 15:25 Sodium 138 mmol/L (136-145) 08/12/18 05:04 Corrected Sodium 140 mmol/L (136-145) 08/12/18 05:04 Potassium 3.8 mmol/L (3.5-5.1) 08/12/18 08:06 Chloride 100 mmol/L (98-107) 08/12/18 05:04 Carbon Dioxide 30.0 mmol/L (21-32) 08/12/18 05:04 BUN 12 mg/dL (7-18) 08/12/18 05:04 Creatinine 1.29 mg/dL (0.55-1.02) H 08/12/18 05:04 Est GFR (MDRD) Af Amer 55 (>60) L 08/12/18 05:04 Est GFR (MDRD) Non-Af 46 (>60) L 08/12/18 05:04 Glucose 184 mg/dL (65-99) H 08/12/18 05:04 POC Glucose (mg/dL) 281 mg/dL (65-99) H 08/12/18 11:39 Calcium 9.0 mg/dL (8.5-10.1) 08/12/18 05:04 Corrected Calcium 9.6 mg/dL (8.5-10.1) 08/12/18 05:04 Magnesium 2.1 mg/dL (1.7-2.9) 08/11/18 05:00 Total Bilirubin 0.30 mg/dL (0.2-1.0) 08/12/18 05:04 AST 45 Units/L (15-37) H 08/12/18 05:04 ALT 33 Units/L (12-78) 08/12/18 05:04 Alkaline Phosphatase 65 Units/L (46-116) 08/12/18 05:04 Creatine Kinase 69 Units/L (26-192) 08/11/18 05:00 CK-MB (CK-2) < 1.0 ng/mL (0-4.0) 08/11/18 05:00 CK/CKMB % Calc 1.5 % (<4) 08/11/18 05:00 Troponin I < 0.02 ng/mL (0-1.5) 08/11/18 05:00 Total Protein 6.8 g/dL (6.4-8.2) 08/12/18 05:04 Albumin 3.2 g/dL (3.4-5.0) L 08/12/18 05:04 Globulin 3.6 g/dL (2.5-4.5) 08/12/18 05:04 Albumin/Globulin Ratio 0.9 Ratio (1.1-2.1) L 08/12/18 05:04 Triglycerides 158 mg/dL (0-150) H 08/11/18 05:00 Cholesterol 143 mg/dL (0-200) 08/11/18 05:00 LDL Cholesterol, Calc 73 mg/dL (0-100) 08/11/18 05:00 HDL Cholesterol 38 mg/dL (40-60) L 08/11/18 05:00 Cholesterol/HDL Ratio 3.8 (0.0-5.0) 08/11/18 05:00 Specimen Type Clean catch urine 08/11/18 00:10 Urine Color Yellow (YELLOW) 08/11/18 00:10 Urine Appearance Clear (CLEAR) 08/11/18 00:10 Urine pH 6.5 (5.0 - 8.0) 08/11/18 00:10 Ur Specific [place] 1.010 (1.000-1.030) 08/11/18 00:10 Urine Protein Negative (NEGATIVE) 08/11/18 00:10 Urine Glucose (UA) 4+ (NEGATIVE) 08/11/18 00:10 Urine Ketones Negative (NEGATIVE) 08/11/18 00:10 Urine Occult Blood Negative (NEGATIVE) 08/11/18 00:10 Urine Nitrite Negative (NEGATIVE) 08/11/18 00:10 Urine Bilirubin Negative (NEGATIVE) 08/11/18 00:10 Urine Urobilinogen Normal (NORMAL) 08/11/18 00:10 Ur Leukocyte Esterase Negative (NEGATIVE) 08/11/18 00:10 Urine RBC None seen /HPF (NONE SEEN) 08/11/18 00:10 Urine WBC None seen /HPF (NONE SEEN) 08/11/18 00:10 Ur Squamous Epith Cells Few /HPF (NEGATIVE) 08/11/18 00:10 Urine Bacteria Negative /HPF (NEGATIVE) 08/11/18 00:10 Ur Culture Indicated? No/not indicated 08/11/18 00:10 - Plan (1) Chest pain Status: Acute Qualifiers: Chest pain type: unspecified Qualified Code(s): R07.9 - Chest pain, unspecified Plan: TELEMETRY, SUPPLEMENTAL OXYGEN, CONTINUE TO MONITOR (2) Bradycardia Status: Acute Plan: DECREASE TOPROL TO 50MG PO DAILY, CONTINUE TO MONITOR.
== END 2018-08-12 12:10 | disposition home or self-care (01) ==
LOC: MED/SURG 15:03 → ER 15:03 → MED/SURG 17:39
PROVIDERS: ADMIT Internal Medicine; ATTEND Internal Medicine
DX: Z23 Encounter for immunization; E11.65 Type 2 diabetes mellitus with hyperglycemia; E78.2 Mixed hyperlipidemia; R00.1 Bradycardia, unspecified; R94.31 Abnormal electrocardiogram [ECG] [EKG]; R07.89 Other chest pain; I10 Essential (primary) hypertension; Z79.899 Other long term (current) drug therapy; R51 Headache; M79.602 Pain in left arm
CPT/HCPCS: 36415; 71010; 71045; 80053; 80061; 81001; 82550; 82553; 83735; 84132; 84484; 85025; 85610; 85730; 90674; 90686; 93005; 94760; 96365; 96372; 96374; 96375; 99282; 99284; A4222; C9113; G0378; J1815; J2270; J2405; J3475; J7050; J8499